=== PATIENT | female | born 1980 | race Caucasian/White ===

== ENCOUNTER 2017-09-29 06:53 | Emergency (ER) | payer OTHER, SELFPAY ==
[2017-09-29 06:53] VITALS: BP 143/56; PULSE 82; RESP 16; TEMP 36.8; O2SAT 98; BMI 43.4
--- NOTE | 2017-09-29 07:50 | CT_ITS ---
STUDY: CT ABDOMEN AND PELVIS WITH CONTRAST REASON FOR EXAM: Female, 36 years old. One-week history of abdominal pain. History of prior colon resection. History of uterine carcinoma. RADIATION DOSAGE (If Supplied By Facility): CTDIvol = ( 17.07 ) mGy, DLP = ( 1297.68 ) mGycm TECHNIQUE: Transaxial images were obtained from the dome of the diaphragm to the symphysis pubis with oral contrast. 100 ml of Isovue 300 contrast was administered. Sagittal and coronal images were reconstructed. Individualized dose optimization techniques were used for this CT. COMPARISON: Comparison is made with prior study dated August 25, 2016. FINDINGS: The visualized lung bases are unremarkable. The visualized portions of the heart are within normal limits. There is decreased attenuation of the liver consistent with steatosis. Hepatomegaly. Normal gallbladder and extrahepatic biliary system. Normal spleen. Normal pancreas. Normal bilateral adrenal glands. Normal right kidney. Normal left kidney. Normal visualized stomach. Normal small intestine. There is evidence of prior right hemicolectomy. There is non-visualization of the appendix. Normal abdominal aorta. Normal inferior vena cava. Normal retroperitoneum. Normal urinary bladder. There is absence of the uterus consistent with a prior hysterectomy. There is a small umbilical hernia containing fat. Normal osseous structures. CT/Abdomen/Pelvis WITH Contrast IMPRESSION: Diffuse fatty infiltration of the liver. Hepatomegaly. Status post right hemicolectomy. Electronically Signed: Alejandro Friend MD at 10:16 EDT Tel [phone], Service support ,
[2017-09-29 08:08] LABS: Mucous, Urine 0 SEEN /hpf (<or=2+); Red Blood Cells-Urine 0 SEEN /hpf (0-5)
[2017-09-29 08:13] LABS: Absolute Lymphocyte Count 3.04 X10^3/ul (0.83-4.51); Absolute Neutrophil Count 7.7 X10^3/uL (2.0-7.7); Basophil# 0.02 X10^3/uL; Basophil% 0.2 % (0-1); Eosinophil# 0.29 X10^3/uL; Eosinophils% 2.5 % (0-5); Hematocrit 42.3 % (37-47); Hemoglobin 13.2 g/dl (12.0-15.0); Lymphocyte # 3.04 X10^3/ul (4.0); Lymphocyte % 25.8 % (19-41); Mean Corp Hgb Conc 31.2 g/gl (32-36); Mean Corpuscular Hgb 26.2 pg (27.0-32.0); Mean Corpuscular Volume 83.9 fL (81-99); Monocyte# 0.69 X10^3/uL; Monocyte% 5.9 % (0-10); Neutrophil % 65.3 % (47-70); Platelet Count 316 K/mm3 (150-450); Red Blood Count 5.04 M/mm3 (4.2-5.4); White Blood Count 11.8 K/mm3 (4.4-11.0)
[2017-09-29 08:13] LABS: Color, Urine Yellow (Yellow); Glucose, Dipstick Normal (Normal); Ketone-Dipstick Negative (Negative); Leukocyte Esterase-Dipstick Negative /ul (Negative); Nitrite-Dipstick Negative (Negative); Occult Blood-Urine 25 /ul (Negative); Protein-Dipstick 15 mg/dl (Negative); Specific Gravity, Urine 1.025 (1.002-1.030); Urine Bilirubin Dipstick Negative (Negative); Urine Clarity Sl. Cloudy (Clear); Urine Urobilinogen Normal (Normal)
[2017-09-29 08:19] LABS: POSITIVE COUNT NO; POSITIVE DIFFERENTIAL NO; POSITIVE MORPHOLOGY NO
[2017-09-29 08:25] LABS: Bacteria 4+ /hpf (None Seen); Squamous Epithelial Cells - UA 5-10 SEEN /hpf (5-10); White Blood Cells 0-5 SEEN /hpf (0-5)
[2017-09-29 08:31] LABS: ALB/GLOB Ratio 0.7 RATIO (0.9-2.4); AST(SGOT) 20 U/L (15-37); Alanine Aminotransfer ALT/SGPT 29 U/L (13-56); Albumin, Serum 3.5 g/dL (3.2-5.0); Alkaline Phosphatase 94 U/L (45-117); Anion Gap 5 (5-15); BUN 14 mg/dL (7-18); BUN/Creat Ratio 14.8 RATIO (10-20); Calcium,Total 8.7 mg/dL (8.5-10.1); Chloride 108 mmol/L (98-107); Creatinine, Serum 0.95 mg/dL (0.55-1.02); EST Glomerular Filtration Rate 70 mL/min (>60); Est Glom Filt Rate - Afr Amer 85 mL/min (>60); Estimated Creatinine Clearance 61.18 ml/min; Globulin 4.9 g/dL (2.2-4.2); Glucose 144 mg/dL (74-106); Lipase 132 U/L (73-393); Protein, Total 8.4 g/dL (6.4-8.2); Sodium Level 141 mmol/L (136-145)
[2017-09-29 08:54] VITALS: BP 129/84; PULSE 78; RESP 16; O2SAT 97
[2017-09-29] MEDS: Ondansetron 4 MG/2 ML Vial IV (09:47)
[2017-09-29 09:48] VITALS: BP 124/78; PULSE 73; RESP 16; O2SAT 96
[2017-09-29 11:37] VITALS: BP 133/75; PULSE 90; RESP 18; O2SAT 97
--- NOTE | 2017-09-29 11:41 | ED.VISSUMM ---
- ER Visit Summary Date of Service: 09/29/17 Chief Complaint: Abdominal pain History of Present Illness: The patient is a 36 F who presents with a one-week history of abdominal pain. She states that sometimes on the right side sometimes on the left side but she always has a slight amount of burning across the epigastrium. History of uterine cancer as well as having a colectomy for polyps. Her physicians are at the [facility]. She notes nausea but no vomiting. She notes alternating diarrhea with constipation. No fevers. No blood in stool. Physical Examination: Afebrile vital signs are stable Gen: Well-nourished well-developed Head: Normocephalic atraumatic Eyes: Perrl EOMI ENT: TMs clear no rhinorrhea moist mucous membranes Neck: Supple no lymphadenopathy no JVD nontender CVS: Regular rate rhythm no murmurs normal S1-S2 Respiratory: No distress clear to auscultation bilaterally chest nontender Abdomen: Soft nontender nondistended normal bowel sounds no masses Back: Nontender Extremity: Nontender no edema Skin: Normal color no rash Neuro: alert orientated ?3 CN II-XII intact normal strength sensation reflexes gait cerebellar Psych: Normal affect normal mood Test Results: CBC with white count 11.8. Urinalysis negative nitrates negative whites negative reds 4+ bacteria CT of pelvis did not demonstrate any acute findings. Emergency Department Course and Treatment: Received morphine and Zofran and later Toradol. She has been resting comfortably. I will be placing the patient on Pepcid. She is to follow-up with her doctors return if worsening or concerns. Impression: 1. Acute abdominal pain 2. Gastritis This note was generated with [employer] dictation software. It may contain incorrect words, spelling, and punctuation that were not noted in review of the chart prior to signing ED Disposition - Plan for ED Patient: Disposition: Home or Assisted Living Chief Complaint: Abd Pain Instructions: ED Abdominal Pain Unkn Cause, ED PUD Vs Gastritis Prescriptions: Famotidine [Pepcid] 20 mg PO BID #28 tab Referrals: Marta Hernandez MD [Primary Care Provider] - 1 Week
--- NOTE | 2017-09-29 11:52 | ED.DCSUM_ITS ---
- ER Visit Summary Date of Service: 09/29/17 Chief Complaint: Abdominal pain History of Present Illness: The patient is a 36 F who presents with a one-week history of abdominal pain. She states that sometimes on the right side sometimes on the left side but she always has a slight amount of burning across the epigastrium. History of uterine cancer as well as having a colectomy for polyps. Her physicians are at the [facility]. She notes nausea but no vomiting. She notes alternating diarrhea with constipation. No fevers. No blood in stool. Physical Examination: Afebrile vital signs are stable Gen: Well-nourished well-developed Head: Normocephalic atraumatic Eyes: Perrl EOMI ENT: TMs clear no rhinorrhea moist mucous membranes Neck: Supple no lymphadenopathy no JVD nontender CVS: Regular rate rhythm no murmurs normal S1-S2 Respiratory: No distress clear to auscultation bilaterally chest nontender Abdomen: Soft nontender nondistended normal bowel sounds no masses Back: Nontender Extremity: Nontender no edema Skin: Normal color no rash Neuro: alert orientated ?3 CN II-XII intact normal strength sensation reflexes gait cerebellar Psych: Normal affect normal mood Test Results: CBC with white count 11.8. Urinalysis negative nitrates negative whites negative reds 4+ bacteria CT of pelvis did not demonstrate any acute findings. Emergency Department Course and Treatment: Received morphine and Zofran and later Toradol. She has been resting comfortably. I will be placing the patient on Pepcid. She is to follow-up with her doctors return if worsening or concerns. Impression: 1. Acute abdominal pain 2. Gastritis This note was generated with [employer] dictation software. It may contain incorrect words, spelling, and punctuation that were not noted in review of the chart prior to signing ED Disposition - Plan for ED Patient: Disposition: Home or Assisted Living Chief Complaint: Abd Pain Instructions: ED Abdominal Pain Unkn Cause, ED PUD Vs Gastritis Prescriptions: Famotidine [Pepcid] 20 mg PO BID #28 tab Referrals: Marta Hernandez MD [Primary Care Provider] - 1 Week
[2017-09-29] MEDS: Ketorolac 30 MG/ML Syringe IV (12:04)
[2017-09-29 12:38] VITALS: BP 122/63; PULSE 69; RESP 18; O2SAT 95
== END 2017-09-29 12:46 | disposition home or self-care (01) ==
PROVIDERS: Emergency Provider Emergency Medicine; Family Provider Internal Medicine; PCP Internal Medicine
DX: K29.70 Gastritis, unspecified, without bleeding (principal); J45.909 Unspecified asthma, uncomplicated; Z85.42 Personal history of malignant neoplasm of other parts of uterus
CPT/HCPCS: 74177; 80053; 81001; 83690; 85025; 96374; 96375; 99283; Q9967; A4216; J2405

== ENCOUNTER 2017-10-06 06:56 | Emergency (ER) | payer OTHER, SELFPAY ==
[2017-10-06 06:57] VITALS: BP 104/77; PULSE 74; RESP 22; TEMP 36.7; O2SAT 94; BMI 47.7
--- NOTE | 2017-10-06 07:12 | ED.DCSUM_ITS ---
- ER Visit Summary Date of Service: 10/06/17 Chief Complaint: Abdominal pain, vomiting blood History of Present Illness: The patient is a 36 F has been seen here last week, she has been seen at urgent care. She has a history of familial polyposis and she had a colon resection about 15 years ago, she presents with nausea and vomiting, she did notice some blood in her vomitus. She has the symptoms for the past 2-3 weeks. No fever or chills. She endorses abdominal cramping. She had a workup including a CT scan which were unremarkable. There are no new symptoms today other than that she noticed bleeding. She has no urinary symptoms. No back pain or flank pain. Pain is mild to moderate, but it is difficult to eat. She is keeping hydrated. Physical Examination: Not appear in acute distress. Moist mucous membranes, no obvious facial deformity No C-spine tenderness supple neck. Regular rate and rhythm without any obvious murmurs Clear lungs bilaterally speaking in full sentences without any obvious respiratory distress Abdomen soft with some epigastric tenderness no guarding or rebound. Negative Howard's. Rectal exam shows no bleeding, no hemorrhoids. The stool is light brown without any blood. Moves all extremities without any difficulty or pain. Skin does not show any obvious rashes or lesions, no trauma. Alert oriented ?3 with no gross focal deficit Emergency Department Course and Treatment: She is found to have an unremarkable workup. Her guaiac is negative, her stool is light brown and nonbloody. She probably has an ulcer, we will give her antiemetics and proton pump inhibitors. She is to follow-up for her colonoscopy which is in 2 weeks. He has any worsening symptoms she needs to return. Disposition: Discharged in stable condition Impression: Epigastric pain This note was generated with [employer] dictation software. It may contain incorrect words, spelling, and punctuation that were not noted in review of the chart prior to signing ED Disposition - Plan for ED Patient: Chief Complaint: GI Bleed Referrals: Marta Hernandez MD [Primary Care Provider] -
[2017-10-06] MEDS: Ondansetron 4 MG/2 ML Vial IV (07:23)
[2017-10-06] MEDS: 0.9% Normal Saline 1,000 ML 1000 ML IV (07:23)
[2017-10-06] MEDS: Sucralfate 1 GM Tablet PO (07:23)
[2017-10-06 07:41] LABS: Absolute Lymphocyte Count 3.06 X10^3/ul (0.83-4.51); Absolute Neutrophil Count 6.9 X10^3/uL (2.0-7.7); Basophil# 0.02 X10^3/uL; Basophil% 0.2 % (0-1); Eosinophil# 0.22 X10^3/uL; Hematocrit 42.1 % (37-47); Hemoglobin 13.4 g/dl (12.0-15.0); Lymphocyte # 3.06 X10^3/ul (4.0); Lymphocyte % 28.1 % (19-41); Mean Corp Hgb Conc 31.8 g/gl (32-36); Mean Corpuscular Hgb 26.2 pg (27.0-32.0); Mean Corpuscular Volume 82.4 fL (81-99); Mean Platelet Vol. 10.1 fl (6.2-12.0); Monocyte# 0.65 X10^3/uL; Neutrophil # 6.88 X10^3/uL (2.7-7.7); Neutrophil % 63.1 % (47-70); Platelet Count 307 K/mm3 (150-450); RBC Distribution Width CV 14.7 % (11.6-14.6); Red Blood Count 5.11 M/mm3 (4.2-5.4); White Blood Count 10.9 K/mm3 (4.4-11.0)
[2017-10-06 07:42] LABS: POSITIVE COUNT NO; POSITIVE DIFFERENTIAL NO; POSITIVE MORPHOLOGY NO
[2017-10-06 07:58] LABS: ALB/GLOB Ratio 0.7 RATIO (0.9-2.4); AST(SGOT) 19 U/L (15-37); Alanine Aminotransfer ALT/SGPT 35 U/L (13-56); Albumin, Serum 3.4 g/dL (3.2-5.0); Alkaline Phosphatase 85 U/L (45-117); Anion Gap 9 (5-15); BUN 16 mg/dL (7-18); Calcium,Total 8.9 mg/dL (8.5-10.1); Chloride 106 mmol/L (98-107); Creatinine, Serum 0.89 mg/dL (0.55-1.02); EST Glomerular Filtration Rate 76 mL/min (>60); Est Glom Filt Rate - Afr Amer 92 mL/min (>60); Estimated Creatinine Clearance 68.45 ml/min; Globulin 4.7 g/dL (2.2-4.2); Glucose 136 mg/dL (74-106); Lipase 114 U/L (73-393); Potassium 3.9 mmol/L (3.5-5.1); Protein, Total 8.1 g/dL (6.4-8.2); Sodium Level 141 mmol/L (136-145)
--- NOTE | 2017-10-06 08:04 | ED.DEP ---
ED Disposition - Plan for ED Patient: Disposition: Home or Assisted Living Chief Complaint: GI Bleed Instructions: ED Epigastric Pain UKO, ED PUD Prescriptions: Ondansetron [Zofran Odt] 4 mg PO Q8H PRN PRN #10 tab PRN Reason: Nausea Omeprazole 40 mg PO DAILY #30 capsule.dr Referrals: Marta Hernandez MD [Primary Care Provider] - 2 Days
[2017-10-06 08:19] VITALS: RESP 16
== END 2017-10-06 08:20 | disposition home or self-care (01) ==
PROVIDERS: Emergency Provider Emergency Medicine; Family Provider Internal Medicine; PCP Internal Medicine
DX: R10.13 Epigastric pain (principal); Z85.42 Personal history of malignant neoplasm of other parts of uterus; Z85.038 Personal history of other malignant neoplasm of large intestine; Z90.49 Acquired absence of other specified parts of digestive tract
CPT/HCPCS: 80053; 82274; 83690; 85025; 96361; 96374; 99284; J7030; J2405

== ENCOUNTER 2019-06-20 05:35 | Emergency (ER) | payer BC, SELFPAY ==
[2019-06-20 05:37] VITALS: BP 148/87; PULSE 85; RESP 18; TEMP 36.4; O2SAT 97; BMI 49.1
--- NOTE | 2019-06-20 05:51 | CT_ITS ---
STUDY: CT BRAIN WITH AND WITHOUT CONTRAST REASON FOR EXAM: Female, 38 years old. POSTERIOR HEADACHE X 10 DAYS,RT EYE BLURRY THIS AM -- HX:ASTHMA,UTERINE CANCER RADIATION DOSAGE (If Supplied By Facility): CTDIvol = ( 27.29 ) mGy, DLP = ( 1286.67 ) mGycm TECHNIQUE: Transaxial CT imaging of the brain was performed pre and post contrast administration. The examination was performed with intravenous administration of IV 100mL Isovue-370. Individualized dose optimization techniques were used for this CT. COMPARISON: None. FINDINGS: Normal soft tissue structures. Normal calvarium. Normal size ventricles and extra-axial spaces for the patient''s age. Normal white matter tracts of the cerebral hemispheres. Normal basal ganglia and thalami. Normal brainstem. Normal cerebellum. There is no intracranial hemorrhage. There are no findings of an acute ischemic infarction. Normal visualized paranasal sinuses. CT/CTA Head W/WO Contrast IMPRESSION: Normal unenhanced and enhanced CT scan of the brain. Electronically Signed: Frantz So, at 6:37 EDT Tel , Service support ,
--- NOTE | 2019-06-20 05:53 | ED.DCSUM_ITS ---
- ER Visit Summary Date of Service: 06/20/19 Chief Complaint: Posterior headache History of Present Illness: The patient is a 38 F history of prior headaches, asthma and prior hysterectomy and partial colectomy due to uterine cancer. Patient states that she had onset of a posterior headache about 8 days ago. The headaches been continuous. She states at times she has blurry vision. Denies any falls or trauma. She is on no blood thinners. She has had headaches in the past but she said they have not been this bad or lasted this long. She denies any weakness or numbness to her upper or lower extremities. She denies any ataxia. She denies any fever or sinus congestion. No one else at home is c urrently having headaches. She does have an uncle that had a brain aneurysm reportedly but no one else in the family. Physical Examination: Middle-aged female no acute distress. Vital signs are stable and afebrile. H EENT exam normal. Pupils round reactive light. Extra motions are intact. Pupils are about 2 mm bilaterally. No facial droop. Normal speech. No signs of trauma to face or scalp. Neck full range of motion no meningismus. Able to flex and touch chin to chest. She does have reproducible musculoskeletal tenderness to the posterior neck. There is no ly mphadenopathy. Lungs clear to auscultation bilaterally. Heart regular rhythm no murmur. Abdomen is soft and nontender. Normal bowel sounds. No peritoneal signs. Patient is moving all 4 extremities. They are neurovascular intact. 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 Dorsi plantarflexion intact. She can raise either arm or either leg without any drift. Back nontender. Neurologic exam normal. NIH of 0. Fingertip to nose within normal limits bilaterally. Test Results: CTA of the brain was read by the radiologist as normal and reviewed by me. Emergency Department Course and Treatment: Patient has a normal exam and a normal neurologic exam. Due to her complaint of having a headache for the last 8 days and intermittent blurry vision I am going to obtain a CAT scan of her brain with contrast to evaluate for possible intracranial abnormality such as bleed, stroke or mass. Clinically however at this time my suspicion is low. Patient will be treated with IV fluids, Benadryl, Toradol and Phenergan for her headache. Treatment Plan: Plenty of fluids and rest. Tylenol and Motrin as needed. Follow-up if not improving. Disposition: discharge Impression: Acute cephalgia This note was generated with [employer] dictation software. It may contain incorrect words, spelling, and punctuation that were not noted in review of the chart prior to signing ED Disposition - Plan for ED Patient: Referrals: Marta Hernandez MD [Primary Care Provider] -
[2019-06-20] MEDS: Ketorolac 30 MG/ML Syringe IV (06:04)
[2019-06-20] MEDS: 0.9% Normal Saline 1,000 ML 1000 ML IV (06:05)
[2019-06-20] MEDS: DiphenhydrAMINE 50 MG/ML Syringe 25 MG IV (06:06)
[2019-06-20] MEDS: proMETHazine 25 MG/ML Syringe 12.5 MG IV (06:06)
--- NOTE | 2019-06-20 06:52 | ED.DEP ---
ED Disposition - Plan for ED Patient: Disposition: Home or Assisted Living Instructions: HEADACHE, Unspecified Referrals: Marta Hernandez MD [Primary Care Provider] - 3-5 Days if not improving Additional Instructions: Fluids and rest. Tylenol and Motrin for pain. Follow-up with your doctor if not improving.
--- NOTE | 2019-06-20 07:05 | ED.RN ---
approx 500 ml infused.
== END 2019-06-20 07:05 | disposition home or self-care (01) ==
PROVIDERS: Emergency Provider Emergency Medicine; PCP Internal Medicine
DX: R51 Headache (principal); J45.909 Unspecified asthma, uncomplicated
CPT/HCPCS: 70496; 96361; 96374; 96375; 99284; J7030; Q9967; A4216

== ENCOUNTER 2020-01-02 10:59 | Emergency (ER) | payer BC, SELFPAY ==
[2020-01-02 11:00] VITALS: BP 148/128; PULSE 94; RESP 20; TEMP 36.3; O2SAT 98; BMI 49.1
[2020-01-02] MEDS: MethylPREDNISolone 125 MG/2 ML Vial IV (11:13)
[2020-01-02] MEDS: 0.9% Normal Saline 1,000 ML 999 ML IV (11:17)
[2020-01-02] MEDS: Famotidine 200 MG/20 ML MDV 20 MG in 0.9% Normal Saline (Pres. free 8 ML 300 MG IV (11:20)
[2020-01-02 11:22] VITALS: BP 135/70; PULSE 83; RESP 24; O2SAT 96
--- NOTE | 2020-01-02 11:37 | ED.VISSUMM ---
- ER Visit Summary Date of Service: 01/02/20 Chief Complaint: Allergic reaction to bee sting History of Present Illness: The patient is a [address] Spear. She reports that approximately 15 minutes ago she was cleaning a client's house and there was a bee in her right shoe. She was stung to the bottom of her right foot. She reports that her foot and ankle are swollen. Throat began to feel itchy and she was wheezing. She took 100 mg of Benadryl and used her albuterol MDI with relief. 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 Physical Examination: Vitals: Stable. Afebrile. General: Well-nourished and well-developed. Head: Normocephalic atraumatic. HEENT: No angioedema of her lips, tongue, or pharynx. Neck: Supple, no lymphadenopathy. No JVD. Nontender. Cardiovascular: Regular rate and rhythm. No murmurs. Respiratory: No respiratory distress. Clear to auscultation bilaterally. No wheezing or stridor. Abdominal: Soft, nontender, nondistended, normal bowel sounds. No guarding, rebound, or peritoneal signs. Back: Nontender. Extremities: Nontender, mild swelling of her right foot. No obvious location of the sting. There is not a stinger in place. There is no erythema. Skin: Normal color, no rash. Neurologic: Alert and oriented ?3. Cranial nerves II through XII are intact. Normal strength and sensation. Psych: Normal affect. Emergency Department Course and Treatment: Patient had taken 100 mg of Benadryl prior to arrival. She had an IV placed. She was given Pepcid and Solu-Medrol IV. She is been observed over the course of 2 hours and feels much improved. Treatment Plan: Patient will be discharged with Zyrtec, prednisone, and Pepcid. Instructed to follow-up with her primary care physician 1 to 2 days if not improving. She is also provided a prescription for an EpiPen. Return to the emergency department for any worsening symptoms. Disposition: To home in improved and stable condition. Impression: 1. Acute allergic reaction to bee sting right foot. This note was generated with [employer] software. It may contain incorrect words, spelling, and punctuation that were not noted in review of the chart prior to signing ED Disposition - Plan for ED Patient: Instructions: ED BEE STING General Allergic Rxn Prescriptions: Prednisone [Deltasone] 40 mg PO DAILY #10 tablet Epi Pen (for allergic rxn) 0.3 mg IM X1 #2 syringe Famotidine [Pepcid] 20 mg PO BID #28 tablet Cetirizine HCl [Zyrtec] 10 mg PO DAILY #14 capsule Referrals: Marta Hernandez MD [Primary Care Provider] - 1-2 Days if not improving
[2020-01-02 12:00] VITALS: BP 134/93; PULSE 81; RESP 18; O2SAT 99
[2020-01-02 13:15] VITALS: BP 129/93; PULSE 79; RESP 16; O2SAT 98
== END 2020-01-02 13:15 | disposition home or self-care (01) ==
LOC: ED 12:07
PROVIDERS: Emergency Provider Emergency Medicine; PCP Internal Medicine
DX: T63.441A Toxic effect of venom of bees, accidental (unintentional), initial encounter (principal); J45.909 Unspecified asthma, uncomplicated
CPT/HCPCS: 96365; 96366; 96375; 99283; A4216; J3490

== ENCOUNTER 2020-05-10 18:23 | Inpatient (IN) | payer BC, SELFPAY ==
[2020-05-10] VITALS (11 sets, daily range): BP systolic 117–181; BP diastolic 59–93; PULSE 120–131; RESP 15–30; TEMP 37.4–39.7; O2SAT 95–99; BMI 49.9
--- NOTE | 2020-05-10 18:27 | ED.RN ---
RN CALLED FOR EKG, PULLED OLD EKGS FOR
--- NOTE | 2020-05-10 18:42 | EKG12_ITS ---
Test Reason : CP Blood Pressure : / mmHG Vent. Rate : 123 BPM Atrial Rate : 123 BPM P-R Int : 124 ms QRS Dur : 066 ms QT Int : 282 ms P-R-T Axes : 039 056 035 degrees QTc Int : 403 ms Sinus tachycardia Otherwise normal ECG Confirmed by JAVED FIGUEREDO, LESLEE ([id number]), slot editor CASTILLO GALLAGHER ([id number]) on 05/12/2020 12:22:55 P M Referred By: GRACIE Confirmed By:JUDITH BURT MD
[2020-05-10] MEDS: 0.9% Normal Saline 1,000 ML 999 ML IV ×2 (18:55→22:19)
[2020-05-10] MEDS: Acetaminophen 500 MG Tablet 1000 MG PO (18:55)
--- NOTE | 2020-05-10 19:00 | RAD_ITS ---
STUDY: X-RAY CHEST REASON FOR EXAM: Female, 39 years old. Chest pain for 20 minutes TECHNIQUE: PA and lateral views of the chest. COMPARISON: 09/09/11 FINDINGS: Cardiac silhouette unremarkable. Pulmonary vascularity/interstitial markings are prominent. Aorta unremarkable. No focal airspace opacities. No pleural effusions. Upper abdomen unremarkable. Osseous structures intact. No pneumothorax. RAD/Chest 1 View (Portable) IMPRESSION: Nonspecific increased prominence of the pulmonary vascular and interstitial markings which may be artifactual or indicate edema versus infection in the appropriate clinical setting. Electronically Signed: Juice Israel MD at 19:30 EST Tel , Service support ,
--- NOTE | 2020-05-10 19:02 | ED.VIS.GEN ---
History of Present Illness Chief Complaint: Chest Pain Informant: Patient Narrative: 39 year-old female with past medical history of asthma presents with concern for chest pain. States began 20 minutes ago. States it is aching and in the center of her chest. States that she had a slight headache yesterday but has had no other symptoms. Denies any shortness of breath, nausea, vomiting, diaphoresis, cough, fever, chills. Past Medical History - Allergies and Home Meds Allergies/Adverse Reactions: Allergies bee venom protein (honey bee) Allergy (Verified 05/10/20 18:24) Anaphylaxis codeine Allergy (Verified 05/10/20 18:24) Rash AND N/V latex Allergy (Verified 05/10/20 18:24) Rash metoclopramide HCl [From Reglan] Allergy (Verified 05/10/20 18:24) Rash Primary Care Physician: Marta Hernandez MD [Primary Care Provider] - Prior records reviewed: Yes Past Medical History: - - asthma Surgical History: noncontributory Lives: Alone Smoking Status: Never smoker Alcohol: None Drugs: None Review of Systems General: Denies: Chills, Fever, Sweats Eyes: Denies: Visual changes - bilaterally, Diplopia ENT: Denies: Rhinorrhea, Sore throat Cardiovascular: Reports: Chest pain. Denies: Palpitations Respiratory: Denies: Dyspnea, Cough, Dyspnea on exertion Gastrointestinal: Denies: Abdominal pain, Nausea, Vomiting, Diarrhea, Melena, Hematochezia Genitourinary: Denies: Dysuria, Hematuria, Frequency Musculoskeletal: Denies: Back pain, Extremity Pain Skin: Denies: Rash, Wounds Neurological: Denies: Headache, Weakness, Numbness Physical Exam Vital Signs/Narrative: Vital Signs Temp Pulse Resp BP Pulse Ox 05/10/20 18:45 103.4 F H 127 H 23 H 181/93 H 99 05/10/20 18:28 123 H 22 H 181/93 H 99 05/10/20 18:27 102.7 F H 131 H 21 H 181/93 H 98 05/10/20 18:24 102.7 F H 123 H 22 H 181/93 H 97 Inital Vital Signs reviewed: Yes General: Well nourished, Well developed, No Acute Distress Head: Normocephalic, Atraumatic Eyes: Perrl, EOMI ENT: Moist mucous membranes, No rhinorrhea Neck: Supple, Nontender Cardiovascular: Regular rhythm, No murmurs, Tachycardia Respiratory: No distress, CTA bilaterally, Chest nontender Abdomen: Soft, Nontender, Nondistended, Normal bowel sounds Back: Nontender, Normal Inspection Extremities: Nontender, No edema Skin: Normal color, No rash Neurological: Alert, Oriented x3, Cranial nerves II-XII grossly intact, Normal Strength, Normal Sensation Psychological: Normal affect, Normal Mood Diagnostic/Tx/Re-eval Chest X-Ray - ED: 1 View, Read by ED Physician, Read by Radiologist, - - Increased interstitial prominence. Clinical Impression(s) from Imaging Studies Chest X-Ray 05/10/20 19:00 IMPRESSION: Nonspecific increased prominence of the pulmonary vascular and interstitial markings which may be artifactual or indicate edema versus infection in the appropriate clinical setting. Electronically Signed: Juice Israel MD at 19:30 EST Tel , Service support , Chest CTA 05/10/20 20:19 IMPRESSION: Possible mild edema or pneumonitis not typical for covid 19 at this time. Electronically Signed: Eliezer Mejia MD at 22:22 EST , Service support , Laboratory Data 05/10/20 05/10/20 05/10/20 17:40 19:51 19:51 WBC 17.4 H RBC 4.52 Hgb 11.9 L Hct 39.5 MCV 87.4 MCH 26.3 L MCHC 30.1 L RDW Std Deviation 46.4 H RDW Coeff of Javan 14.4 Plt Count 263 MPV 10.6 Immature Gran % (Auto) 0.600 Neut % (Auto) 85.8 H Lymph % (Auto) 8.6 L [place] % (Auto) 4.6 Eos % (Auto) 0.2 Baso % (Auto) 0.2 Absolute Neuts (auto) 14.9 H Absolute Lymphs (auto) 1.49 Nucleated RBC % 0 PT 14.6 INR 1.2 APTT 29.4 Sodium 136 Potassium 5.0 Chloride 105 Carbon Dioxide 23.0 Anion Gap 8 BUN 13 Creatinine 0.97 Estim Creat Clear Calc 58.18 Est GFR (MDRD) Af Amer 82 Est GFR (MDRD) Non-Af 68 BUN/Creatinine Ratio 13.4 Glucose 165 H Lactic Acid Calcium 9.0 Total Bilirubin 0.50 AST 41 H ALT 39 Alkaline Phosphatase 94 Troponin I < 0.015 Total Protein 7.5 Albumin 3.4 Globulin 4.1 Albumin/Globulin Ratio 0.8 L Urine Color Urine Clarity Urine pH Ur Specific [place] Urine Protein Urine Glucose (UA) Urine Ketones Urine Occult Blood Urine Nitrite Urine Bilirubin Urine Urobilinogen Ur Leukocyte Esterase Urine RBC Urine WBC Ur Squamous Epith Cells Urine Bacteria Urine Mucus 05/10/20 05/10/20 19:51 22:05 WBC RBC Hgb Hct MCV MCH MCHC RDW Std Deviation RDW Coeff of Javan Plt Count MPV Immature Gran % (Auto) Neut % (Auto) Lymph % (Auto) [place] % (Auto) Eos % (Auto) Baso % (Auto) Absolute Neuts (auto) Absolute Lymphs (auto) Nucleated RBC % PT INR APTT Sodium Potassium Chloride Carbon Dioxide Anion Gap BUN Creatinine Estim Creat Clear Calc Est GFR (MDRD) Af Amer Est GFR (MDRD) Non-Af BUN/Creatinine Ratio Glucose Lactic Acid 2.5 H* Calcium Total Bilirubin AST ALT Alkaline Phosphatase Troponin I Total Protein Albumin Globulin Albumin/Globulin Ratio Urine Color Yellow Urine Clarity Clear Urine pH 5.0 Ur Specific [place] 1.010 Urine Protein 15 H Urine Glucose (UA) Normal Urine Ketones Negative Urine Occult Blood 25 H Urine Nitrite Negative Urine Bilirubin Negative Urine Urobilinogen Normal Ur Leukocyte Esterase Negative Urine RBC 0-5 SEEN Urine WBC 0 SEEN Ur Squamous Epith Cells 0-5 SEEN Urine Bacteria 0 SEEN Urine Mucus 0 SEEN - Rhythm Strip Rhythm Strip: Sinus Tach Rate: 123 Ectopy: None - EKG Initial EKG Interpretation: Sinus Tachycardia - Sinus tachycardia 123 bpm. NC interval 124 ms. QTC of 403 ms. - Medical Decision Making Patient tachycardic and febrile upon arrival. Lungs clear. Chest x-ray shows increased interstitial prominence interpreted by myself. No sushil infiltrate or cardiomegaly. Patient given 1 L normal saline and Tylenol. Urine shows no evidence of infection. Other lab work shows a lactic acidosis with a leukocytosis. Patient will be given another 1 L of normal saline as well as Toradol. Patient did have a decrease in her fever but has increased back to 102 ?F. Patient will be given Motrin. CTA was done given her sudden onset of chest pain which shows no pulmonary embolism however is concerning for possible pneumonitis. Patient given Rocephin and azithromycin. Blood cultures pending. Given her persistent tachycardia and fever patient will be admitted for further treatment and evaluation. Spoke with hospitalist who is agreeable with this plan and patient was admitted in stable condition. Impression: 1. Sepsis 2. Pneumonitis ED Disposition - Plan for ED Patient: Disposition: [facility] Care [facility] Referrals: Marta Hernandez MD [Primary Care Provider] -
[2020-05-10 20:13] LABS: Absolute Lymphocyte Count 1.49 X10^3/uL (0.83-4.51); Absolute Neutrophil Count 14.9 X10^3/uL (2.0-7.7); Basophil# 0.03 X10^3/uL; Basophil% 0.2 % (0-1); Eosinophil# 0.03 X10^3/uL; Eosinophils% 0.2 % (0-5); Hematocrit 39.5 % (37-47); Hemoglobin 11.9 g/dL (12.0-15.0); Lymphocyte # 1.49 X10^3/ul (4.0); Lymphocyte % 8.6 % (19-41); Mean Corp Hgb Conc 30.1 g/dL (32-36); Mean Corpuscular Hgb 26.3 pg (27.0-32.0); Mean Corpuscular Volume 87.4 fL (81-99); Mean Platelet Vol. 10.6 fl (6.2-12.0); Monocyte% 4.6 % (0-10); NRBC Flagged by Analyzer 0 % (0-5); Neutrophil # 14.91 X10^3/uL (2.7-7.7); Neutrophil % 85.8 % (47-70); Platelet Count 263 K/mm3 (150-450); RBC Distribution Width CV 14.4 % (11.6-14.6); RBC Distribution Width SD 46.4 fl (35.1-43.9); Red Blood Count 4.52 M/mm3 (4.2-5.4); White Blood Count 17.4 K/mm3 (4.4-11.0)
[2020-05-10 20:16] LABS: ALB/GLOB Ratio 0.8 RATIO (0.9-2.4); AST(SGOT) 41 U/L (15-37); Alanine Aminotransfer ALT/SGPT 39 U/L (13-56); Albumin, Serum 3.4 g/dL (3.2-5.0); Alkaline Phosphatase 94 U/L (45-117); Anion Gap 8 (5-15); BUN 13 mg/dL (7-18); BUN/Creat Ratio 13.4 RATIO (10-20); Chloride 105 mmol/L (98-107); Creatinine, Serum 0.97 mg/dL (0.55-1.02); EST Glomerular Filtration Rate 68 mL/min (>60); Est Glom Filt Rate - Afr Amer 82 mL/min (>60); Estimated Creatinine Clearance 58.18 ml/min; Globulin 4.1 g/dL (2.2-4.2); Glucose 165 mg/dL (74-106); Protein, Total 7.5 g/dL (6.4-8.2); Sodium Level 136 mmol/L (136-145)
--- NOTE | 2020-05-10 20:19 | CT_ITS ---
STUDY: CTA CHEST REASON FOR EXAM: Female, 39 years old. 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 RADIATION DOSAGE (If Supplied By Facility): CTDIvol = ( 12.665 ) mGy, DLP = ( 519.17 ) mGycm TECHNIQUE: The examination was performed with the intravenous administration of IV 100mL [id number]. Post-processing of the angiographic images was performed, with multiplanar reformation and 3D reconstruction. Individualized dose optimization techniques were used for this CT. COMPARISON: Chest x-ray 05/10/2020. And CTA chest 01/17/2015 FINDINGS: Normal enhancement of the main pulmonary artery and right and left pulmonary arteries. There is limited enhancement of the bilateral peripheral pulmonary arteries. There is no demonstrated pulmonary embolism. Normal thoracic aorta and visualized great vessels. There is no demonstrated aortic dissection. Normal heart and pericardium. Normal mediastinum. Normal hilar regions. Normal visualized trachea and bronchi. Mild perihilar ill-defined groundglass opacity. Normal pulmonary parenchyma. Normal pleura. Normal chest wall structures. Normal osseous structures. Normal visualized upper abdomen. CT/CTA Chest W/WO Contrast IMPRESSION: Possible mild edema or pneumonitis not typical for covid 19 at this time. Electronically Signed: Eliezer Mejia MD at 22:22 EST , Service support ,
[2020-05-10 20:26] LABS: International Normalized Ratio 1.2; Partial Thromboplast Time 29.4 Seconds (24.1-36.2); Prothrombin Time (Protime)PT. 14.6 SECONDS (11.7-14.9)
[2020-05-10 20:51] LABS: Lactic Acid 2.5 mmol/L (0.4-1.9)
[2020-05-10] MEDS: Ketorolac 15 MG/ML Vial IV (20:57)
[2020-05-10] MEDS: Ondansetron 4 MG/2 ML Vial IV (21:04)
[2020-05-10 22:12] LABS: Bacteria 0 SEEN /hpf (None Seen); Mucous, Urine 0 SEEN /hpf (<or=2+); White Blood Cells 0 SEEN /hpf (0-5)
[2020-05-10] MEDS: Ibuprofen 600 MG Tablet PO (22:18)
[2020-05-10 22:19] LABS: Color, Urine Yellow (Yellow); Glucose, Dipstick Normal (Normal); Ketone-Dipstick Negative (Negative); Leukocyte Esterase-Dipstick Negative /ul (Negative); Nitrite-Dipstick Negative (Negative); Occult Blood-Urine 25 /ul (Negative); Protein-Dipstick 15 mg/dl (Negative); Urine Bilirubin Dipstick Negative (Negative); Urine Clarity Clear (Clear); Urine Urobilinogen Normal (Normal)
[2020-05-10 22:25] LABS: Red Blood Cells-Urine 0-5 SEEN /hpf (0-5); Squamous Epithelial Cells - UA 0-5 SEEN /hpf (5-10)
--- NOTE | 2020-05-10 22:59 | HP.PCM_ITS ---
History of Present Illness Date of Admission: 05/10/20 Chief Complaint: chest pain The patient is a 39 year old F with a PMH of asthma who was admitted via the ED on 05/10/2020 with a complaint of chest pain which started ~ 20 mins prior to admission. She had associated slight headache, and also had a fever. Review of systems was otherwise negative. Vitals showed tachycardia and tachypnea, and she was febrile, with temp of 102.3F. BP was 117/59/ Chemistry was unremarkable, with lactic acid of 2.5. CBC showed wbc of 17.4, and Hb of 11.9, with platelets of 263. CXR showed non specific increased prominence of the pulmonary vascular and interstitial markings which may be artifactual indicate edema versus in fection in the appropriate clinical setting. CTA of the chest done showed no evidence of PE and showed possible mild edema or pneumonitis not typical for Covid at this time. She has been admitted to be managed for SIRS criteria due to pneumonitis. Covid PCR test requested and is pending. [] Past Medical History Allergies bee venom protein (honey bee) Allergy (Verified 05/10/20 18:24) Anaphylaxis codeine Allergy (Verified 05/10/20 18:24) Rash AND N/V latex Allergy (Verified 05/10/20 18:24) Rash metoclopramide HCl [From Reglan] Allergy (Verified 05/10/20 18:24) Rash Home Medications: Ambulatory Orders Medication Instructions Recorded Albuterol Inhaler [Ventolin Hfa 1 - 2 puff INHALATION Q6H PRN PRN 01/17/15 (SP)] Albuterol Aerosols [Ventolin 2.5 mg INHALATION Q4H PRN PRN 01/02/20 Aerosols] Cetirizine HCl [Zyrtec] 10 mg PO DAILY #14 cap 01/02/20 Epi Pen [Epi-Pen] 0.3 mg IM X1 #2 syringe 01/02/20 Surgical History: noncontributory Lives: Alone Smoking Status: Never smoker Tobacco Use: Non-smoker Alcohol: None Drugs: None Review of Systems Constitutional: Denies: Chills, Fever, Weight Change HEENT: Denies: Head Aches, Sinus Congestion, Sinus Drainage Cardiovascular: Reports: Chest Pain. Denies: Palpitations Respiratory: Reports: Shortness of Breath, Shortness of breath at rest, Shortness of breath upon exertion. Denies: Cough, Sputum production Gastrointestinal: Denies: Abdominal Pain, Nausea, Vomiting Genitourinary: Denies: Dysuria Musculoskeletal: Denies: Joint Pain, Joint Tenderness Skin: Denies: Rash, Wounds Neurological: Denies: Numbness, Tingling, Focal weakness Psychiatric: Denies: Anxiety, Depression, Homicidal Ideations, Suicidal Ideati ons Hematologic/ Lymphatic: Denies: Easy Bruising, Easy Bleeding VTE Information - Inpt Only VTE Present on Admission: No VTE Pharm Prophylaxis ordered?: Yes - Physical Exam Vitals/I&O's: Vital Signs Temp Pulse Resp BP Pulse Ox 102.3 F H 122 H 20 H 117/59 L 95 05/10/20 22:00 05/10/20 22:00 05/10/20 22:00 05/10/20 22:00 05/10/20 22:00 Oxygen Delivery Method Room Air Weight: 264 lb 8.875 oz Body Mass Index (BMI) 49.9 Intake and Output for Last 24 Hours 05/08/20 05/09/20 05/10/20 23:59 23:59 23:59 Intake Total 1000 / 1000 Balance 1000 / 1000 General: Alert, Oriented x3, Cooperative, - - super morbid obesity HEENT: Atraumatic, PERRLA, EOMI, Normocephalic Oral: Dry Mucosa Neck: Supple, No JVD, Negative Carotid Bruits Lungs: Clear to auscultation, Normal air movement, No rhonchi, No wheeze, No rales, Tachypneic Cardiovascular: Normal S1, Normal S2, No murmurs, Tachycardic Abdomen: Bowel Sounds Present, Soft, Non Tender, Non-Distended, No Hepato- splenomegaly, Obese Extremities: No clubbing, No cyanosis, No edema, Capillary Refill Less than 3 S econds Skin: No rashes, No breakdown Musculoskeletal: No Tenderness to Palpation of Joints or Extremities Lymphatic: No Cervical, Supraclavicular, or Inguinal Adenopathy Neurological: Cranial nerves II-XII grossly intact, Neuro grossly intact, Motor Exam 5/5 strength throughout Psych/Mental Status: Normal Affect, Appropriate, Alert and oriented to time, place, person, mood and affect Microbiology Past 72 Hours 05/10/20 19:48 Mucosa - Nasopharyngeal SARS-CoV-2 Antigen (Rapid) - Final Laboratory Results 05/10/20 17:40: Sodium 136, Potassium 5.0, Chloride 105, Carbon Dioxide 23.0, Anion Gap 8, BUN 13, Creatinine 0.97, Estim Creat Clear Calc 58.18, Est GFR (MDRD) Af Amer 82, Est GFR (MDRD) Non-Af 68, BUN/Creatinine Ratio 13.4, Glucose 165 H, Calcium 9.0, Total Bilirubin 0.50, AST 41 H, ALT 39, Alkaline Phosphatase 94, Troponin I < 0.015, Total Protein 7.5, Albumin 3.4, Globulin 4.1, Albumin/Globulin Ratio 0.8 L 05/10/20 19:51: WBC 17.4 H, RBC 4.52, Hgb 11.9 L, Hct 39.5, MCV 87.4, MCH 26.3 L , MCHC 30.1 L, RDW Std Deviation 46.4 H, RDW Coeff of Javan 14.4, Plt Count 263, MPV 10.6, Immature Gran % (Auto) 0.600, Neut % (Auto) 85.8 H, Lymph % (Auto) 8.6 L, [place] % (Auto) 4.6, Eos % (Auto) 0.2, Baso % (Auto) 0.2, Absolute Neuts (auto) 14.9 H, Absolute Lymphs (auto) 1.49, Nucleated RBC % 0 05/10/20 19:51: PT 14.6, INR 1.2, APTT 29.4 05/10/20 19:51: Lactic Acid 2.5 H* 05/10/20 22:05: Urine Color Yellow, Urine Clarity Clear, Urine pH 5.0, Ur Specific [place] 1.010, Urine Protein 15 H, Urine Glucose (UA) Normal, Urine Ketones Negative, Urine Occult Blood 25 H, Urine Nitrite Negative, Urine Bilirubin Negative, Urine Urobilinogen Normal, Ur Leukocyte Esterase Negative, Urine RBC 0-5 SEEN, Urine WBC 0 SEEN, Ur Squamous Epith Cells 0-5 SEEN, Urine Bacteria 0 SEEN, Urine Mucus 0 SEEN Diagnostic Data Chest X-Ray 05/10/20 19:00 IMPRESSION: Nonspecific increased prominence of the pulmonary vascular and interstitial markings which may be artifactual or indicate edema versus infection in the appropriate clinical setting. Electronically Signed: Juice Israel MD at 19:30 EST Tel , Service support , Chest CTA 05/10/20 20:19 IMPRESSION: Possible mild edema or pneumonitis not typical for covid 19 at this time. Electronically Signed: Eliezer Mejia MD at 22:22 EST , Service support , Current Medications Sodium Chloride () 1,000 mls @ 999 mls/hr IV .Q1H1M ONE Stop: 05/10/20 23:12 Last Admin: 05/10/20 22:19 Dose: 999 mls/hr Documented by: Ceftriaxone Sodium (Rocephin) 1 gm in 50 mls @ 100 mls/hr IV X1 ONE Stop: 05/10/20 23:16 Azithromycin 500 mg/ Dextrose 255 mls @ 250 mls/hr IV X1 ONE Stop: 05/10/20 23:48 Assessment/Plan 39 y/o admitted with a complaint of shortness of breath and fever #Severe sepsis due to pneumonia * admit to PCU * SIRS criteria was 3/4- fever, leucocytosis, tachypnea, tachycardia * lactic acid was also elevated * wbc was up to 17.4 * admit to PCU with telemetry * COVID PCR and antigen tests were both negative * started on IV ceftriaxone and azithromycin in the ED, will continue * get blood cultures, urine for strep and legionella * hydrate with IVF * #Community acquired pneumonia: as above #Lactic acidosis: hydrate with IVF and trend # History of asthma * not in exacerbation * breathing treatment with bronchodilators * * DVT prophylaxis: lovenox Code status: full code * Patient counseled extensively about different types of CODE STATUS including full code, DNR CCA and DNR CCA. Patient elects to be full code. * Total [id number] time 17 minutes. Inpatient E&M: 34330 Init Hosp L3 Procedures: 28370 Advncd Care Plan 30 Min
[2020-05-10] MEDS: Ceftriaxone 1 GM/50 ML BAG IV (23:13)
[2020-05-11] VITALS (19 sets, daily range): BP systolic 99–150; BP diastolic 55–91; PULSE 80–119; RESP 18–28; TEMP 36.8–39.6; O2SAT 93–99; BMI 51.0
[2020-05-11 00:07] LABS: Reflex Lactate? Y
[2020-05-11] MEDS: Acetaminophen 500 MG Tablet 1000 MG PO (00:58)
[2020-05-11 01:42] LABS: Lactic Acid 3.3 mmol/L (0.4-1.9)
--- NOTE | 2020-05-11 01:48 | ED.RN ---
Pt complains of increased pain to right LE. Redness and warmth noted to RLE. Area traced fo monitoring.
[2020-05-11] MEDS: 0.9% Normal Saline 1,000 ML 999 ML IV ×5 (01:51→06:58)
[2020-05-11] MEDS: 0.9% Saline Lock 10 ML Syringe IV ×3 (03:55→11:57)
[2020-05-11] MEDS: Ondansetron 4 MG/2 ML Vial IV ×3 (04:18→18:25)
--- NOTE | 2020-05-11 04:25 | PCS.PANDOC ---
PANDEMIC DOCUMENTATION INITIATED: Date: 05/11/2020 Time: 3751
[2020-05-11 06:10] LABS: Absolute Lymphocyte Count 0.96 X10^3/uL (0.83-4.51); Absolute Neutrophil Count 23.5 X10^3/uL (2.0-7.7); Basophil# 0.07 X10^3/uL; Basophil% 0.3 % (0-1); Eosinophils% 0.4 % (0-5); Hematocrit 36.5 % (37-47); Hemoglobin 11.2 g/dL (12.0-15.0); Lymphocyte # 0.96 X10^3/ul (4.0); Lymphocyte % 3.8 % (19-41); Mean Corp Hgb Conc 30.7 g/dL (32-36); Mean Corpuscular Hgb 27.1 pg (27.0-32.0); Mean Corpuscular Volume 88.2 fL (81-99); Mean Platelet Vol. 10.6 fl (6.2-12.0); Monocyte# 0.55 X10^3/uL; Monocyte% 2.2 % (0-10); NRBC Flagged by Analyzer 0 % (0-5); Neutrophil # 23.46 X10^3/uL (2.7-7.7); Neutrophil % 91.6 % (47-70); POSITIVE DIFFERENTIAL YES; Platelet Count 219 K/mm3 (150-450); RBC Distribution Width CV 14.7 % (11.6-14.6); RBC Distribution Width SD 47.2 fl (35.1-43.9); Red Blood Count 4.14 M/mm3 (4.2-5.4); White Blood Count 25.6 K/mm3 (4.4-11.0)
[2020-05-11 06:17] LABS: Differential Indicated SCAN CRITERIA MET
[2020-05-11 06:37] LABS: Lactic Acid 2.3 mmol/L (0.4-1.9)
[2020-05-11 06:38] LABS: Anion Gap 8 (5-15); BUN 10 mg/dL (7-18); BUN/Creat Ratio 12.9 RATIO (10-20); Calcium,Total 7.6 mg/dL (8.5-10.1); Chloride 109 mmol/L (98-107); Creatinine, Serum 0.78 mg/dL (0.55-1.02); EST Glomerular Filtration Rate 87 mL/min (>60); Est Glom Filt Rate - Afr Amer 105 mL/min (>60); Estimated Creatinine Clearance 72.35 ml/min; Glucose 183 mg/dL (74-106); Potassium 3.8 mmol/L (3.5-5.1); Sodium Level 140 mmol/L (136-145)
[2020-05-11 06:46] LABS: Differential Comment SCANNED
[2020-05-11] MEDS: Acetaminophen 325 MG Tablet 650 MG PO ×3 (07:50→21:39)
[2020-05-11] MEDS: Loratadine 10 MG Tablet PO (07:51)
[2020-05-11] MEDS: Enoxaparin 40 MG/0.4 ML Syringe SC ×2 (07:51→21:32)
[2020-05-11] MEDS: Albuterol 2.5 MG/3 ML VIAL.NEB. INHALATION ×3 (08:25→20:37)
[2020-05-11 10:09] LABS: Reflex Lactate? Y
--- NOTE | 2020-05-11 11:09 | PCM.PROGNOTE ---
<ValeriyJo PRODUCT DEMONSTRATOR - Last Filed: 05/11/20 11:38> Subjective: Patient seen and examined. Denies shortness of breath. Denies chest pain. Reports palpitations. Fever improving. Denies chills. Reports right lower extremity redness, warmth and discomfort which began overnight. Denies injury to right lower extremity. - Physical Exam Vitals/I&O's: Vital Signs Temp Pulse Resp BP Pulse Ox 99.6 F H 109 H 18 137/72 H 94 05/11/20 09:45 05/11/20 09:45 05/11/20 09:45 05/11/20 09:45 05/11/20 09:45 Oxygen Delivery Method Room Air Weight: 270 lb 1.06 oz Body Mass Index (BMI) 51.0 Intake and Output for Last 24 Hours 05/09/20 05/10/20 05/11/20 23:59 23:59 23:59 Intake Total 2049 5255 / 5255 Balance 2049 5255 / 5255 General: Alert, Oriented x3, Cooperative HEENT: Atraumatic, PERRLA, EOMI, Normocephalic Neck: Supple, No JVD, Negative Carotid Bruits Lungs: Clear to auscultation, Normal air movement Cardiovascular: Regular Rhythm, Normal S1, Normal S2, No murmurs, Tachycardic Abdomen: Bowel Sounds Present, Soft, Non Tender, Non-Distended, Obese Extremities: No clubbing, No cyanosis, Capillary Refill Less than 3 Seconds, Edema - RLE Skin: - - Right lower extremity redness, warmth Musculoskeletal: No Tenderness to Palpation of Joints or Extremities Neurological: Cranial nerves II-XII grossly intact, Neuro grossly intact Psych/Mental Status: Normal Affect, Appropriate Microbiology Past 72 Hours 05/10/20 22:05 Urine, Clean Catch Streptococcus pneumoniae Antigen (M - Final 05/10/20 22:05 Urine, Clean Catch Legionella Antigen - Final 05/10/20 19:48 Mucosa - Nasopharyngeal SARS-CoV-2 Antigen (Rapid) - Final Laboratory Results 05/10/20 17:40: Sodium 136, Potassium 5.0, Chloride 105, Carbon Dioxide 23.0, Anion Gap 8, BUN 13, Creatinine 0.97, Estim Creat Clear Calc 58.18, Est GFR (MDRD) Af Amer 82, Est GFR (MDRD) Non-Af 68, BUN/Creatinine Ratio 13.4, Glucose 165 H, Calcium 9.0, Total Bilirubin 0.50, AST 41 H, ALT 39, Alkaline Phosphatase 94, Troponin I < 0.015, Total Protein 7.5, Albumin 3.4, Globulin 4.1, Albumin/Globulin Ratio 0.8 L 05/10/20 19:51: WBC 17.4 H, RBC 4.52, Hgb 11.9 L, Hct 39.5, MCV 87.4, MCH 26.3 L, MCHC 30.1 L, RDW Std Deviation 46.4 H, RDW Coeff of Javan 14.4, Plt Count 263, MPV 10.6, Immature Gran % (Auto) 0.600, Neut % (Auto) 85.8 H, Lymph % (Auto) 8.6 L, [place] % (Auto) 4.6, Eos % (Auto) 0.2, Baso % (Auto) 0.2, Absolute Neuts (auto) 14.9 H, Absolute Lymphs (auto) 1.49, Nucleated RBC % 0 05/10/20 19:51: PT 14.6, INR 1.2, APTT 29.4 05/10/20 19:51: Lactic Acid 2.5 H* 05/10/20 22:05: Urine Color Yellow, Urine Clarity Clear, Urine pH 5.0, Ur Specific [place] 1.010, Urine Protein 15 H, Urine Glucose (UA) Normal, Urine Ketones Negative, Urine Occult Blood 25 H, Urine Nitrite Negative, Urine Bilirubin Negative, Urine Urobilinogen Normal, Ur Leukocyte Esterase Negative, Urine RBC 0-5 SEEN, Urine WBC 0 SEEN, Ur Squamous Epith Cells 0-5 SEEN, Urine Bacteria 0 SEEN, Urine Mucus 0 SEEN 05/11/20 00:35: COVID-19 (CHETAN) Not Detected 05/11/20 01:00: Lactic Acid 3.3 H* 05/11/20 05:40: WBC 25.6 H, RBC 4.14 L, Hgb 11.2 L, Hct 36.5 L, MCV 88.2, MCH 27.1, MCHC 30.7 L, RDW Std Deviation 47.2 H, RDW Coeff of Javan 14.7 H, Plt Count 219, MPV 10.6, Immature Gran % (Auto) 1.700 H, Neut % (Auto) 91.6 H, Lymph % (Auto) 3.8 L, [place] % (Auto) 2.2, Eos % (Auto) 0.4, Baso % (Auto) 0.3, Absolute Neuts (auto) 23.5 H, Absolute Lymphs (auto) 0.96, Nucleated RBC % 0, Differential Comment SCANNED 05/11/20 05:40: Sodium 140, Potassium 3.8, Chloride 109 H, Carbon Dioxide 23.0, Anion Gap 8, BUN 10, Creatinine 0.78, Estim Creat Clear Calc 72.35, Est GFR (MDRD) Af Amer 105, Est GFR (MDRD) Non-Af 87, BUN/Creatinine Ratio 12.9, Glucose 183 H, Calcium 7.6 L 05/11/20 05:40: Lactic Acid 2.3 H* 05/11/20 10:25: Lactic Acid Pending Current Medications Acetaminophen (Acetaminophen 325 Mg Tablet) 650 mg PO Q6H PRN PRN PRN Reason: Pain Score 1-10/Temp > 100.7 F Last Admin: 05/11/20 07:50 Dose: 650 mg Documented by: Albuterol Sulfate (Albuterol 2.5 Mg/3 Ml Vial.Neb.) 2.5 mg INHALATION Q4H PRN PRN PRN Reason: WHEEZING Last Admin: 05/11/20 08:25 Dose: 2.5 mg Documented by: Enoxaparin Sodium (Enoxaparin 40 Mg/0.4 Ml Syringe) 40 mg SC BID [facility] Last Admin: 05/11/20 07:51 Dose: 40 mg Documented by: Ceftriaxone Sodium 2 gm/ (Sodium Chloride) 50 mls @ 100 mls/hr IV Q24H [facility] Azithromycin 500 mg/ Dextrose 255 mls @ 250 mls/hr IV Q24H [facility] Sodium Chloride () 250 mls @ 15 mls/hr IV .[id number] PRN PRN Reason: Saline Flush Sodium Chloride () 250 mls @ 15 mls/hr IV .[id number] PRN PRN Reason: Additional IVPB Infusion Loratadine (Loratadine 10 Mg Tablet) 10 mg PO DAILY [facility] Last Admin: 05/11/20 07:51 Dose: 10 mg Documented by: Nitroglycerin (Nitroglycerin (Inpatient Use) 0.4 Mg Tab.Subl) 0.4 mg SUBLINGUAL Q5M PRN PRN Reason: CARDIAC/CHEST PAIN Ondansetron HCl (Ondansetron 4 Mg/2 Ml Vial) 4 mg IV Q6H PRN PRN PRN Reason: NAUSEA/VOMITING Sodium Chloride (0.9% Saline Lock 10 Ml Syringe) 10 - 40 ml IV UD PRN PRN Reason: SALINE FLUSH Last Admin: 05/11/20 04:19 Dose: 10 ml Documented by: Medical Necessity - Tobacco Use Smoking Status: Never smoker Tobacco Use: Non-smoker Assessment/Plan 1. Severe Sepsis secondary to pneumonitis and right lower extremity cellulitis-CTA of chest shows mild pneumonitis. Right lower extremity with cellulitis appearance. Obtain duplex right lower extremity to rule out DVT. Continue IV azithromycin and IV Rocephin. Albuterol and DuoNeb aerosols. Blood cultures pending. 2. History of migraines-patient reports headache this morning. As needed Toradol ordered. 3. Chronic intermittent asthma-no exacerbation. As needed albuterol aerosol. 4. Morbid obesity-encouraged diet and lifestyle modifications. DVT prophylaxis-Lovenox subcu This patient was seen by ILIANA Gaspar under the supervision of Dr. Martines. <Neal Martines - Last Filed: 05/11/20 12:54> - Physical Exam Vitals/I&O's: Vital Signs Temp Pulse Resp BP Pulse Ox 99.6 F H 109 H 18 137/72 H 94 05/11/20 09:45 05/11/20 09:45 05/11/20 09:45 05/11/20 09:45 05/11/20 09:45 Oxygen Delivery Method Room Air Weight: 122.5 kg Body Mass Index (BMI) 51.0 Intake and Output for Last 24 Hours 05/09/20 05/10/20 05/11/20 23:59 23:59 23:59 Intake Total 2049 5495 / 5495 Balance 2049 5495 / 5495 Microbiology Past 72 Hours 05/10/20 22:05 Urine, Clean Catch Streptococcus pneumoniae Antigen (M - Final 05/10/20 22:05 Urine, Clean Catch Legionella Antigen - Final 05/10/20 19:48 Mucosa - Nasopharyngeal SARS-CoV-2 Antigen (Rapid) - Final Laboratory Results 05/10/20 17:40: Sodium 136, Potassium 5.0, Chloride 105, Carbon Dioxide 23.0, Anion Gap 8, BUN 13, Creatinine 0.97, Estim Creat Clear Calc 58.18, Est GFR (MDRD) Af Amer 82, Est GFR (MDRD) Non-Af 68, BUN/Creatinine Ratio 13.4, Glucose 165 H, Calcium 9.0, Total Bilirubin 0.50, AST 41 H, ALT 39, Alkaline Phosphatase 94, Troponin I < 0.015, Total Protein 7.5, Albumin 3.4, Globulin 4.1, Albumin/Globulin Ratio 0.8 L 05/10/20 19:51: WBC 17.4 H, RBC 4.52, Hgb 11.9 L, Hct 39.5, MCV 87.4, MCH 26.3 L, MCHC 30.1 L, RDW Std Deviation 46.4 H, RDW Coeff of Javan 14.4, Plt Count 263, MPV 10.6, Immature Gran % (Auto) 0.600, Neut % (Auto) 85.8 H, Lymph % (Auto) 8.6 L, [place] % (Auto) 4.6, Eos % (Auto) 0.2, Baso % (Auto) 0.2, Absolute Neuts (auto) 14.9 H, Absolute Lymphs (auto) 1.49, Nucleated RBC % 0 05/10/20 19:51: PT 14.6, INR 1.2, APTT 29.4 05/10/20 19:51: Lactic Acid 2.5 H* 05/10/20 22:05: Urine Color Yellow, Urine Clarity Clear, Urine pH 5.0, Ur Specific [place] 1.010, Urine Protein 15 H, Urine Glucose (UA) Normal, Urine Ketones Negative, Urine Occult Blood 25 H, Urine Nitrite Negative, Urine Bilirubin Negative, Urine Urobilinogen Normal, Ur Leukocyte Esterase Negative, Urine RBC 0-5 SEEN, Urine WBC 0 SEEN, Ur Squamous Epith Cells 0-5 SEEN, Urine Bacteria 0 SEEN, Urine Mucus 0 SEEN 05/11/20 00:35: COVID-19 (CHETAN) Not Detected 05/11/20 01:00: Lactic Acid 3.3 H* 05/11/20 05:40: WBC 25.6 H, RBC 4.14 L, Hgb 11.2 L, Hct 36.5 L, MCV 88.2, MCH 27.1, MCHC 30.7 L, RDW Std Deviation 47.2 H, RDW Coeff of Javan 14.7 H, Plt Count 219, MPV 10.6, Immature Gran % (Auto) 1.700 H, Neut % (Auto) 91.6 H, Lymph % (Auto) 3.8 L, [place] % (Auto) 2.2, Eos % (Auto) 0.4, Baso % (Auto) 0.3, Absolute Neuts (auto) 23.5 H, Absolute Lymphs (auto) 0.96, Nucleated RBC % 0, Differential Comment SCANNED 05/11/20 05:40: Sodium 140, Potassium 3.8, Chloride 109 H, Carbon Dioxide 23.0, Anion Gap 8, BUN 10, Creatinine 0.78, Estim Creat Clear Calc 72.35, Est GFR (MDRD) Af Amer 105, Est GFR (MDRD) Non-Af 87, BUN/Creatinine Ratio 12.9, Glucose 183 H, Calcium 7.6 L 05/11/20 05:40: Lactic Acid 2.3 H* 05/11/20 10:25: Lactic Acid 3.3 H* 05/11/20 11:45: MRSA (PCR) Pending Current Medications Acetaminophen (Acetaminophen 325 Mg Tablet) 650 mg PO Q6H PRN PRN PRN Reason: Pain Score 1-10/Temp > 100.7 F Last Admin: 05/11/20 07:50 Dose: 650 mg Documented by: Albuterol Sulfate (Albuterol 2.5 Mg/3 Ml Vial.Neb.) 2.5 mg INHALATION Q4H PRN PRN PRN Reason: WHEEZING Last Admin: 05/11/20 08:25 Dose: 2.5 mg Documented by: Enoxaparin Sodium (Enoxaparin 40 Mg/0.4 Ml Syringe) 40 mg SC BID [facility] Last Admin: 05/11/20 07:51 Dose: 40 mg Documented by: Ceftriaxone Sodium 2 gm/ (Sodium Chloride) 50 mls @ 100 mls/hr IV Q24H [facility] Sodium Chloride () 250 mls @ 15 mls/hr IV .[id number] PRN PRN Reason: Saline Flush Sodium Chloride () 250 mls @ 15 mls/hr IV .[id number] PRN PRN Reason: Additional IVPB Infusion Sodium Chloride () 1,000 mls @ 125 mls/hr IV .Q8H [facility] Last Admin: 05/11/20 11:57 Dose: 125 mls/hr Documented by: Vancomycin IV Pharmacy to Dose (1 ea/ Sodium Chloride) 500 mls @ 250 mls/hr IV X1 THEN RX TO DOSE ONE; Protocol Stop: 05/11/20 14:44 Ketorolac Tromethamine (Ketorolac 15 Mg/Ml Vial) 15 mg IV Q8H PRN PRN PRN Reason: Pain 1-10 or Fever Stop: 05/16/20 11:16 Last Admin: 05/11/20 11:56 Dose: 15 mg Documented by: Loratadine (Loratadine 10 Mg Tablet) 10 mg PO DAILY [facility] Last Admin: 05/11/20 07:51 Dose: 10 mg Documented by: Nitroglycerin (Nitroglycerin (Inpatient Use) 0.4 Mg Tab.Subl) 0.4 mg SUBLINGUAL Q5M PRN PRN Reason: CARDIAC/CHEST PAIN Ondansetron HCl (Ondansetron 4 Mg/2 Ml Vial) 4 mg IV Q6H PRN PRN PRN Reason: NAUSEA/VOMITING Last Admin: 05/11/20 12:03 Dose: 4 mg Documented by: Sodium Chloride (0.9% Saline Lock 10 Ml Syringe) 10 - 40 ml IV UD PRN PRN Reason: SALINE FLUSH Last Admin: 05/11/20 11:57 Dose: 10 ml Documented by: Assessment/Plan This patient was seen in conjunction with ILIANA Gaspar . I have independently interviewed and examined the patient and reviewed pertinent historical, laboratory, and other data. Please refer to ILIANA Gaspar note for details of this patient's presentation, findings, and recommendations. I have reviewed ILIANA Gaspar note and concur with documented findings. In brief, patient is a 39-year-old lady who presented with chest discomfort. Patient patient including CTA of the chest was consistent with acute pneumonitis. Patient was also found to have erythema and warmth involving the right lower extremity. An assessment of severe sepsis made admitted to a monitored bed for further management Physical Examination: GENERAL: cooperative HEENT: Atraumatic; EYES; Anicteric, Normal Conjunctiva NECK; supple, normal thyroid, RESPIRATORY: Diminished to auscultation CARDIOVASCULAR: Regular S1 S2, GI: soft, normoactive bowel sounds, : No Renal angle tenderness; EXTREMITIES: No edema, no clubbing, MUSCULOSKELETAL: no muscle waisting NEURO: Awake; no lateralizing signs. SKIN: Erythema and warmth involving the distal half of the right lower extremity circumferentially PSYCH; Flat affect Assessment: 1. Severe sepsis 2. Right lower extremity cellulitis 3. Pneumonitis 4. Moderate intermittent asthma 5. Morbid obesity with BMI of 51 6. Chronic migraines 7. DVT prophylaxis Recommendations: 1. I have discussed the results of my overview and impressions with the patient 2. Options for management were reviewed Inpatient E&M: 20278 [facility] Hosp L3
--- NOTE | 2020-05-11 11:11 | VDLE_ITS ---
Reason For Study: RLE PAIN RIGHT GSV is normal. CFV is compressible, spontaneous, phasic, competent and demonstrates normal augmentation. FV is compressible, spontaneous, phasic, competent and demonstrates normal augmentation. POP V is compressible, spontaneous, phasic, competent and demonstrates normal augmentation. T/P Trunk is compressible. PTV is compressible. RT PerV is compressible. Procedure This is a venous duplex using B-mode, color flow and spectral Doppler. Exam performed portable in patient room. The study was technically difficult. Due to obesity. A preliminary report was called and/or faxed to [facility]. Interpretation Summary There is no evidence of right lower extremity deep vein thrombosis. Right great saphenous vein appears patent and compressible segmentally. Technically difficult examination secondary to patient body habitus Ordering Physician: Jo Crooks Referring Physician: Marta Hernandez Performed By: Milena Lopez, CATHIE, RVT
[2020-05-11 11:13] LABS: Lactic Acid 3.3 mmol/L (0.4-1.9)
[2020-05-11] MEDS: Ketorolac 15 MG/ML Vial IV ×2 (11:56→19:45)
[2020-05-11] MEDS: dexAMETHasone 10 MG/ML Vial IV (11:56)
[2020-05-11] MEDS: 0.9% Normal Saline 1,000 ML 125 ML IV ×2 (11:57→23:58)
[2020-05-11 14:16] LABS: M R Staph aureus DNA By PCR Negative (Negative); Probe Check PASS; Specimen Processing Control PASS
--- NOTE | 2020-05-11 14:23 | PCM.RX.CS ---
Consult Pharmacy has been consulted to manage selected antiobiotic: Vancomycin Type of Consult: New start Labs: Sodium 140 mmol/L (136-145) 05/11/20 05:40 Potassium 3.8 mmol/L (3.5-5.1) 05/11/20 05:40 Chloride 109 mmol/L (98-107) H 05/11/20 05:40 Carbon Dioxide 23.0 mmol/L (21.0-32.0) 05/11/20 05:40 Anion Gap 8 (5-15) 05/11/20 05:40 BUN 10 mg/dL (7-18) 05/11/20 05:40 Creatinine 0.78 mg/dL (0.55-1.02) 05/11/20 05:40 Est GFR (MDRD) Af Amer 105 mL/min (>60) 05/11/20 05:40 Est GFR (MDRD) Non-Af 87 mL/min (>60) 05/11/20 05:40 BUN/Creatinine Ratio 12.9 RATIO (10-20) 05/11/20 05:40 Glucose 183 mg/dL (74-106) H 05/11/20 05:40 Microbiology: Microbiology 05/10/20 22:05 Urine, Clean Catch Streptococcus pneumoniae Antigen (M - Final 05/10/20 22:05 Urine, Clean Catch Legionella Antigen - Final 05/10/20 19:48 Mucosa - Nasopharyngeal SARS-CoV-2 Antigen (Rapid) - Final Weight used for dosin.5 kg Estimated Creatinine Clearance: 117 ML/MIN Goal Trough: 10-15 mcg/mL Pharmacy Plan for Drug Dosing: Give inital dose of 1750mg IV x1, then continue with 1750mg IV q12h per [facility] dosing chart. Will order a trough before the 4th total dose. The patient's CrCl of 117ml/min was calculated using an adjusted body weight of 77.7kg. Pharmacy Service will continue to monitor and adjust dosing as required. Follow-Up Labs: Trough Vancomycin Labs to be done on [date and time ordered]: 05/12 716
[2020-05-11] MEDS: proMETHazine 25 MG/ML Syringe 12.5 MG IM ×2 (15:08→20:41)
[2020-05-11] MEDS: MELATONIN 3 MG TABLET PO (21:32)
[2020-05-12 02:59] VITALS: PULSE 91
[2020-05-12 03:04] VITALS: PULSE 92; RESP 20
[2020-05-12] MEDS: Albuterol 2.5 MG/3 ML VIAL.NEB. INHALATION ×2 (03:04→07:15)
[2020-05-12 03:45] VITALS: BP 148/95; PULSE 110; RESP 18; TEMP 37.1; O2SAT 93
[2020-05-12] MEDS: Ketorolac 15 MG/ML Vial IV (03:56)
[2020-05-12] MEDS: proMETHazine 25 MG/ML Syringe 12.5 MG IM (03:56)
[2020-05-12 06:05] LABS: Hematocrit 34.5 % (37-47); Hemoglobin 10.9 g/dL (12.0-15.0); Mean Corp Hgb Conc 31.6 g/dL (32-36); Mean Corpuscular Hgb 27.2 pg (27.0-32.0); Mean Platelet Vol. 11.1 fl (6.2-12.0); Platelet Count 185 K/mm3 (150-450); RBC Distribution Width CV 14.2 % (11.6-14.6); RBC Distribution Width SD 44.9 fl (35.1-43.9); Red Blood Count 4.01 M/mm3 (4.2-5.4); White Blood Count 22.8 K/mm3 (4.4-11.0)
[2020-05-12 06:44] LABS: Anion Gap 8 (5-15); BUN 11 mg/dL (7-18); BUN/Creat Ratio 13.8 RATIO (10-20); Calcium,Total 8.2 mg/dL (8.5-10.1); Chloride 110 mmol/L (98-107); EST Glomerular Filtration Rate 84 mL/min (>60); Est Glom Filt Rate - Afr Amer 102 mL/min (>60); Estimated Creatinine Clearance 70.54 ml/min; Glucose 282 mg/dL (74-106); Potassium 3.9 mmol/L (3.5-5.1); Sodium Level 135 mmol/L (136-145)
[2020-05-12 06:59] VITALS: PULSE 81
[2020-05-12 07:15] VITALS: PULSE 90; RESP 18
[2020-05-12 08:51] LABS: Hemoglobin A1c 7.8 % (3.8-5.6)
[2020-05-12 09:03] VITALS: BP 147/95; PULSE 94; RESP 18; TEMP 36.9; O2SAT 98
[2020-05-12] MEDS: Acetaminophen 325 MG Tablet 650 MG PO (09:04)
[2020-05-12] MEDS: Enoxaparin 40 MG/0.4 ML Syringe SC (09:04)
[2020-05-12] MEDS: Loratadine 10 MG Tablet PO (09:04)
[2020-05-12] MEDS: Ondansetron 4 MG/2 ML Vial IV (09:04)
[2020-05-12] MEDS: 0.9% Saline Lock 10 ML Syringe IV (09:05)
--- NOTE | 2020-05-12 10:59 | CASEMGMT ---
KAREN CHEEMA assessment: Face to Face with patient for initial transition planning/care coordination assessment. KAREN CHEEMA introduced self and role at [facility], pt voices understanding and consents to assessment at this time. Pt is sitting up in chair in no distress at this time. Pt is A/Ox4 at this time and answers all questions appropriately at this time. Care providers, pharmacy, and demographics verified at this time. Presentation: Pt arrives w/ CP for 20min Admitting dx: SIRS, pneumonitis, cellulitis PCP: Mary Specialists: Isak colon surgeon at [facility]; Reilly Williamson at [facility] Preferred Pharmacy: [facility] Insurance: [employer] Prescription Benefit: [place] Living Will/HPOA: Pt states does not have LW/HPOA and declines AD info at this time. LNOK: Gustavo, Living Arrangements: Pt states lives with and children in duplex with stairs and states no concerns at home at this time. Pt states is independent with ADL's. Transportation: Pt states drives self and states no transportation concerns at this time. DME/HHC: Pt states no current DME or need for any DME at this time. Pt states no hx of HHC or SNF in the past. Pt states no concerns with going home at time of discharge. 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 Pt states does not smoke cigarettes or drink ETOH. Pt states no further concerns/needs at this time. CM to follow for any further discharge planning/needs. Advised pt to ask for CM if any further questions/concerns/needs arise, voices understanding. Pt Goal: Home Plan: Home [place] KAREN CHEEMA
--- NOTE | 2020-05-12 11:14 | DCINST_ITS ---
You will use the following diet at home:: Calorie/Carbohydrate Controlled (specify 1200, 1400, etc) Discharge Activity: Return to Normal Activity Call your doctor if you observe: Shortness of breath, Dizziness, Fainting spells, Chest pain Allergies/Adverse Reactions: Allergies bee venom protein (honey bee) Allergy (Verified 05/11/20 03:35) Anaphylaxis codeine Allergy (Verified 05/11/20 03:35) Rash AND N/V latex Allergy (Verified 05/11/20 03:35) Rash metoclopramide HCl [From Reglan] Allergy (Verified 05/11/20 03:35) Rash Medications to take at Discharge Albuterol Inhaler [Ventolin Hfa] 1 - 2 puff INHALATION Q6H PRN PRN 01/17/15 Albuterol Aerosols [Ventolin Aerosols] 2.5 mg INHALATION Q4H PRN PRN 01/02/20 Cetirizine HCl [Zyrtec] 10 mg PO DAILY #14 cap 01/02/20 Epi Pen [Epi-Pen] 0.3 mg IM X1 #2 syringe 01/02/20 Cephalexin [Keflex] 500 mg PO Q6 #36 cap 05/12/20 Lisinopril [Zestril] 5 mg PO DAILY #30 tab 05/12/20 Prednisone 40 mg PO DAILY #10 tab 05/12/20 The following prescriptions were given: Cephalexin [Keflex] 500 mg PO Q6 #36 cap Transmission Status: Pending to [id number] Prednisone 40 mg PO DAILY #10 tab Transmission Status: Pending to [id number] Lisinopril [Zestril] 5 mg PO DAILY #30 tab Transmission Status: Pending to [id number] Primary Care Physician: Marta Hernandez MD [Primary Care Provider] - Please follow up with your Primary Care Physician in: 3-5 Days Test Results: Test results from this visit will be discussed in further detail at your follow- up appointment, if applicable. Proposed Discharge Date: 05/12/20
--- NOTE | 2020-05-12 11:15 | PCM.DC.SUM ---
<Jo Crooks HEAD OF [employer]ING [employer] - Last Filed: 05/12/20 11:22> Discharge Date and Diagnosis Date of Admission: 05/10/20 Date of Discharge: 05/12/20 - Primary Discharge Diagnosis Acute Problems: 1. Severe Sepsis secondary right lower extremity cellulitis, pneumonia ruled out 2. History of migraines 3. Chronic intermittent asthma with mild exacerbation 4. Morbid obesity Hospital Course and Treatment Imaging Results: Diagnostic Data Chest X-Ray 05/10/20 19:00 IMPRESSION: Nonspecific increased prominence of the pulmonary vascular and interstitial markings which may be artifactual or indicate edema versus infection in the appropriate clinical setting. Electronically Signed: Juice Israel MD at 19:30 EST Tel , Service support , Chest CTA 05/10/20 20:19 IMPRESSION: Possible mild edema or pneumonitis not typical for covid 19 at this time. Electronically Signed: Eliezer Mejia MD at 22:22 EST , Service support , Operations: None Procedures: None Summary of Care Provided: The patient is a 39 year old F admitted 05/10/2020 due to chest pain. 1. Severe Sepsis secondary right lower extremity cellulitis, pneumonia ruled out-CTA of chest showed possible mild pneumonitis. Right lower extremity cellulitis improving. Discharged on Keflex to complete 10-day course. Patient does not have shortness of breath, cough. No clinical evidence of pneumonia. 2. History of migraines-continue home as needed regimen. 3. Chronic intermittent asthma, mild exacerbation-prednisone 40 mg daily for 5 days at discharge. As needed albuterol aerosol. 4. Morbid obesity-encouraged diet and lifestyle modifications. General: Alert, Oriented x3, Cooperative HEENT: Atraumatic, PERRLA, EOMI, Normocephalic Neck: Supple, No JVD, Negative Carotid Bruits Lungs: Clear to auscultation, Normal air movement Cardiovascular: Regular Rhythm, Normal S1, Normal S2, No murmurs, Tachycardic Abdomen: Bowel Sounds Present, Soft, Non Tender, Non-Distended, Obese Extremities: No clubbing, No cyanosis, Capillary Refill Less than 3 Seconds, Edema - RLE Skin: Right lower extremity cellulitis Musculoskeletal: No Tenderness to Palpation of Joints or Extremities Neurological: Cranial nerves II-XII grossly intact, Neuro grossly intact Psych/Mental Status: Normal Affect, Appropriate Patient seen and examined prior to discharge. Physical assessment as noted above. Patient is stable for discharge with follow up recommendations as noted above. This patient was seen by ILIANA Gaspar under the supervision of Dr. Hernandez. - Physical Exam Vitals/I&O's: Vital Signs Temp Pulse Resp BP Pulse Ox 98.4 F 94 18 147/95 H 98 05/12/20 09:03 05/12/20 09:03 05/12/20 09:03 05/12/20 09:03 05/12/20 09:03 Oxygen Delivery Method Room Air Weight: 270 lb 1.06 oz Body Mass Index (BMI) 51.0 Intake and Output for Last 24 Hours 05/10/20 05/11/20 05/12/20 23:59 23:59 23:59 Intake Total 2049 7980.00 / 8460.00 Balance 2049 7980.00 / 8460.00 Microbiology Past 72 Hours 05/10/20 22:05 Urine, Clean Catch Urine Culture - Final Mixed Gram Positive Organisms 05/10/20 22:05 Urine, Clean Catch Streptococcus pneumoniae Antigen (M - Final 05/10/20 22:05 Urine, Clean Catch Legionella Antigen - Final 05/10/20 19:48 Mucosa - Nasopharyngeal SARS-CoV-2 Antigen (Rapid) - Final Laboratory Results 05/11/20 11:45: MRSA (PCR) Negative 05/12/20 05:52: WBC 22.8 H, RBC 4.01 L, Hgb 10.9 L, Hct 34.5 L, MCV 86.0, MCH 27.2, MCHC 31.6 L, RDW Std Deviation 44.9 H, RDW Coeff of Javan 14.2, Plt Count 185, MPV 11.1 05/12/20 05:52: Sodium 135 L, Potassium 3.9, Chloride 110 H, Carbon Dioxide 17.0 L, Anion Gap 8, BUN 11, Creatinine 0.80, Estim Creat Clear Calc 70.54, Est GFR (MDRD) Af Amer 102, Est GFR (MDRD) Non-Af 84, BUN/Creatinine Ratio 13.8, Glucose 282 H, Calcium 8.2 L 05/12/20 05:52: Hemoglobin A1c 7.8 H Current Medications Acetaminophen (Acetaminophen 325 Mg Tablet) 650 mg PO Q6H PRN PRN PRN Reason: Pain Score 1-10/Temp > 100.7 F Last Admin: 05/12/20 09:04 Dose: 650 mg Documented by: Albuterol Sulfate (Albuterol 2.5 Mg/3 Ml Vial.Neb.) 2.5 mg INHALATION Q4H PRN PRN PRN Reason: WHEEZING Last Admin: 05/12/20 07:15 Dose: 2.5 mg Documented by: Enoxaparin Sodium (Enoxaparin 40 Mg/0.4 Ml Syringe) 40 mg SC BID [facility] Last Admin: 05/12/20 09:04 Dose: 40 mg Documented by: Hydralazine HCl (Hydralazine 20 Mg/Ml Vial) 10 mg IV Q6H PRN PRN PRN Reason: SBP>160 or DBP >110 Ceftriaxone Sodium 2 gm/ (Sodium Chloride) 50 mls @ 100 mls/hr IV Q24H [facility] Last Infusion: 05/11/20 22:05 Dose: Infused Documented by: Sodium Chloride () 250 mls @ 15 mls/hr IV .[id number] PRN PRN Reason: Saline Flush Sodium Chloride () 250 mls @ 15 mls/hr IV .[id number] PRN PRN Reason: Additional IVPB Infusion Sodium Chloride () 1,000 mls @ 125 mls/hr IV .Q8H [facility] Last Infusion: 05/12/20 10:00 Dose: 125 mls/hr Documented by: Vancomycin HCl 1,750 mg/ (Sodium Chloride) 535 mls @ 250 mls/hr IV Q12H [facility] Last Infusion: 05/12/20 04:24 Dose: Infused Documented by: Vancomycin IV Pharmacy to Dose (1 ea/ Sodium Chloride) 500 mls @ 250 mls/hr IV X1 THEN RX TO DOSE PRN; Protocol PRN Reason: vancomycin dosing Ketorolac Tromethamine (Ketorolac 15 Mg/Ml Vial) 15 mg IV Q8H PRN PRN PRN Reason: Pain 1-10 or Fever Stop: 05/16/20 11:16 Last Admin: 05/12/20 03:56 Dose: 15 mg Documented by: Loratadine (Loratadine 10 Mg Tablet) 10 mg PO DAILY [facility] Last Admin: 05/12/20 09:04 Dose: 10 mg Documented by: Melatonin (Melatonin 3 Mg Tablet) 3 mg PO QHS [facility] Last Admin: 05/11/20 21:32 Dose: 3 mg Documented by: Nitroglycerin (Nitroglycerin (Inpatient Use) 0.4 Mg Tab.Subl) 0.4 mg SUBLINGUAL Q5M PRN PRN Reason: CARDIAC/CHEST PAIN Ondansetron HCl (Ondansetron 4 Mg/2 Ml Vial) 4 mg IV Q6H PRN PRN PRN Reason: NAUSEA/VOMITING Last Admin: 05/12/20 09:04 Dose: 4 mg Documented by: Promethazine HCl (Promethazine 25 Mg/Ml Syringe) 12.5 mg IM Q6H PRN PRN PRN Reason: NAUSEA/VOMITING Last Admin: 05/12/20 03:56 Dose: 12.5 mg Documented by: Sodium Chloride (0.9% Saline Lock 10 Ml Syringe) 10 - 40 ml IV UD PRN PRN Reason: SALINE FLUSH Last Admin: 05/12/20 09:05 Dose: 10 ml Documented by: Discharge Diet: Low fat/ Low Cholesterol, Carb Control Diet Discharge Activity: Return to Normal Activity Call your doctor if you observe: Shortness of breath, Dizziness, Fainting spells, Chest pain Home Medications: Medications to take at Discharge Albuterol Inhaler [Ventolin Hfa] 1 - 2 puff INHALATION Q6H PRN PRN 01/17/15 Albuterol Aerosols [Ventolin Aerosols] 2.5 mg INHALATION Q4H PRN PRN 01/02/20 Cetirizine HCl [Zyrtec] 10 mg PO DAILY #14 cap 01/02/20 Epi Pen [Epi-Pen] 0.3 mg IM X1 #2 syringe 01/02/20 Cephalexin [Keflex] 500 mg PO Q6 #36 cap 05/12/20 Lisinopril [Zestril] 5 mg PO DAILY #30 tab 05/12/20 Prednisone 40 mg PO DAILY #10 tab 05/12/20 Following Prescriptions Were Given to Patient: Cephalexin [Keflex] 500 mg PO Q6 #36 cap Transmission Status: Received by [id number] Prednisone 40 mg PO DAILY #10 tab Transmission Status: Received by [id number] Lisinopril [Zestril] 5 mg PO DAILY #30 tab Transmission Status: Received by [facility] #[id number] Primary Care Physician: Marta Hernandez MD [Primary Care Provider] - Please follow up with your Primary Care Physician in: 3-5 Days Disposition: Home Minutes spent on discharge:: 35 Patient Condition:: Stable Medical Necessity - Tobacco Use Smoking Status: Never smoker Tobacco Use: Non-smoker Meaningful Use Info Meaningful Use Diagnoses (Choose all that apply): None applicable <Salinas Hernandez - Last Filed: 05/12/20 17:03> Hospital Course and Treatment Operations: None Procedures: None Summary of Care Provided: Patient seen and examined independently. Data reviewed. I agree with the above note by the nurse practitioner. The patient is a 39 year old F presents with chest pain. Patient has CTA that showed possible pneumonitis. On my review did not appreciate much in the way of any pneumonia. Patient did, however, have cellulitis of her right lower extremity. Area was demarcated and patient was started on antibiotics. Patient did well and the area had retracted. Patient noted some blistering though I did not appreciate any blistering from it nor any woody appearance. But certainly from the area of demarcation it was greatly withdrawn. There was some areas slightly above the area of demarcation but overall appear to be improved from where was originally marked. Patient had no tenderness no fluctuance noted. Concerning for strep and patient will be discharged with cephalexin completed 10-day course of antibiotics. Concern is for the patient's respiratory symptoms it may been more of an asthma exacerbation. Patient did not have COVID-19. Patient will be discharged with prednisone and albuterol metered-dose inhaler. [] - Physical Exam Vitals/I&O's: Vital Signs Temp Pulse Resp BP Pulse Ox 36.9 C 94 18 147/95 H 98 05/12/20 09:03 05/12/20 09:03 05/12/20 09:03 05/12/20 09:03 05/12/20 09:03 Oxygen Delivery Method Room Air Weight: 122.5 kg Body Mass Index (BMI) 51.0 Intake and Output for Last 24 Hours 05/10/20 05/11/20 05/12/20 23:59 23:59 23:59 Intake Total 2049 7980.00 / 8460.00 / Balance 2049 7980.00 / 8460.00 2134. / General: Alert, No apparent distress Lungs: Clear to auscultation, Normal air movement, No rhonchi, No wheeze Cardiovascular: Regular rate, Regular Rhythm, Normal S1, Normal S2 Skin: - - Erythema in the anterior right cat mostly withdrawn from the area of demarcation no slight patch above the area of demarcation. Microbiology Past 72 Hours 05/10/20 22:05 Urine, Clean Catch Urine Culture - Final Mixed Gram Positive Organisms 05/10/20 22:05 Urine, Clean Catch Streptococcus pneumoniae Antigen (M - Final 05/10/20 22:05 Urine, Clean Catch Legionella Antigen - Final 05/10/20 19:48 Mucosa - Nasopharyngeal SARS-CoV-2 Antigen (Rapid) - Final Laboratory Results 05/12/20 05:52: WBC 22.8 H, RBC 4.01 L, Hgb 10.9 L, Hct 34.5 L, MCV 86.0, MCH 27.2, MCHC 31.6 L, RDW Std Deviation 44.9 H, RDW Coeff of Javan 14.2, Plt Count 185, MPV 11.1 05/12/20 05:52: Sodium 135 L, Potassium 3.9, Chloride 110 H, Carbon Dioxide 17.0 L, Anion Gap 8, BUN 11, Creatinine 0.80, Estim Creat Clear Calc 70.54, Est GFR (MDRD) Af Amer 102, Est GFR (MDRD) Non-Af 84, BUN/Creatinine Ratio 13.8, Glucose 282 H, Calcium 8.2 L 05/12/20 05:52: Hemoglobin A1c 7.8 H Discharge Diet: Low fat/ Low Cholesterol, Carb Control Diet Discharge Activity: Return to Normal Activity Call your doctor if your incision/area has: Increased Pain/ Swelling, Increased Redness Call your doctor if you observe: Shortness of breath, Dizziness, Fainting spells, Chest pain Disposition: Home Minutes spent on discharge:: 35 Patient Condition:: Stable Medical Necessity - Tobacco Use Smoking Status: Never smoker Tobacco Use: Non-smoker Meaningful Use Info Meaningful Use Diagnoses (Choose all that apply): None applicable Inpatient E&M: 47040 Disch Hosp
--- NOTE | 2020-05-12 11:25 | PCM.WORK.EX ---
Work/School Excuse Work/School Excuse for:: Patient Please excuse this person from:: Work From: 05/10/20 through: 05/15/20 - PCP f/u before returning
--- NOTE | 2020-05-12 12:17 | PHA.DC.MR ---
Pharmacy Service has performed discharge medication reconciliation for this patient. The patient's discharge medication list was reviewed for discrepancies and discrepancies were resolved. Home Medications Albuterol Inhaler [Ventolin Hfa] 1 - 2 puff INHALATION Q6H PRN PRN 01/17/15 Albuterol Aerosols [Ventolin Aerosols] 2.5 mg INHALATION Q4H PRN PRN 01/02/20 Cetirizine HCl [Zyrtec] 10 mg PO DAILY #14 cap 01/02/20 Epi Pen [Epi-Pen] 0.3 mg IM X1 #2 syringe 01/02/20 Cephalexin [Keflex] 500 mg PO Q6 #36 cap 05/12/20 Lisinopril [Zestril] 5 mg PO DAILY #30 tab 05/12/20 Prednisone 40 mg PO DAILY #10 tab 05/12/20
--- NOTE | 2020-05-13 15:11 | CASEMGMT ---
RN CM Discharge F/U Phone Call LACE: 10 Strata: 3 Discharge date: 05/12/20 Call date: 05/13/20 Call time: 1512 Attempted to reach pt without success at this time, message left for pt to call this RN CM back if/when able. [place] RN CM Admission dx: SIRS criteria, pneumonitis
== END 2020-05-12 12:12 | disposition home or self-care (01) | DRG 872 ==
LOC: ED 23:34 → PCU 05-11 03:12
PROVIDERS: Nurse Practitioner Family; Admitting Provider Student in an Organized Health Care Education/Training Program; Emergency Provider Emergency Medicine; PCP Internal Medicine
DX: A41.9 Sepsis, unspecified organism (principal); L03.115 Cellulitis of right lower limb; Z68.43 Body mass index [BMI] 50.0-59.9, adult; J45.21 Mild intermittent asthma with (acute) exacerbation; E87.2 Acidosis; R65.20 Severe sepsis without septic shock; G43.909 Migraine, unspecified, not intractable, without status migrainosus; E66.01 Morbid (severe) obesity due to excess calories
CPT/HCPCS: 36415; 71045; 71275; 80048; 80053; 81001; 83036; 83605; 84484; 85025; 85027; 85610; 85730; 87040; 87086; 87088; 87426; 87449; 87635; 87641; 93005; 93971; 94640; 97161; 97165; 99285; J7030; J7040; J7050; Q9967; A4216; J0696; J2405; U0002

== ENCOUNTER 2020-06-11 08:00 | Outpatient (RCR) | payer BC, SELFPAY ==
[2020-05-11 03:33] VITALS: BMI 51.0
[2020-05-28 08:14] VITALS: BP 180/77; PULSE 108; RESP 16; TEMP 35.8; BMI 48.3
--- NOTE | 2020-05-28 09:22 | PCM.WC.HP ---
(1) Blister (nonthermal), right lower leg, initial encounter Status: Acute Code(s): S80.821A - Blister (nonthermal), right lower leg, initial encounter (2) Unspecified open wound, right lower leg, initial encounter Status: Acute Code(s): S81.801A - Unspecified open wound, right lower leg, initial encounter (3) Obesity (BMI 30-39.9) Status: Acute Code(s): E66.9 - Obesity, unspecified (4) Diabetes type 2, uncontrolled Status: Acute Code(s): E11.65 - Type 2 diabetes mellitus with hyperglycemia (5) Hypertension Status: Chronic Code(s): I10 - Essential (primary) hypertension History of Present Illness Date of Service: 05/28/20 Chief Complaint: Follow-up right lower leg blisters now open wounds circumferential and right lower leg History of Wound: 39-year-old white female that was referred to us from [facility]. 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 At the hospital she was admitted and they noticed then her right lower leg blistering and then open wound circumferential of leg. Ultrasound shows no blockages of the veins or DVTs. She was also admitted for new onset diabetes, septicemia, hypertensive crisis. Patient was sent home on Metformin and antibiotic therapy, but was still short of breath and ended up in [facility] in [place]. She was admitted for 8 more days for increasing shortness of breath and low pulse ox. She also had fevers of 103. And was given more antibiotic therapy there. She then saw her primary care that referred her here to the wound center. Patient is currently on Augmentin and doxycycline for her leg. The leg is circumferential and completely scabbed with yellow slough. Past Medical History Past Medical History: Chronic Problems Hypertension (Chronic) Surgical History: noncontributory Allergies/Adverse Reactions: Allergies bee venom protein (honey bee) Allergy (Verified 05/28/20 08:37) Anaphylaxis codeine Allergy (Verified 05/28/20 08:37) Rash AND N/V latex Allergy (Verified 05/28/20 08:37) Rash metoclopramide HCl [From Reglan] Allergy (Verified 05/28/20 08:37) Rash Home Medications: Ambulatory Orders Medication Instructions Recorded Albuterol Inhaler [Ventolin Hfa] 1 - 2 puff INHALATION Q6H PRN PRN 01/17/15 Albuterol Aerosols [Ventolin 2.5 mg INHALATION Q4H PRN PRN 01/02/20 Aerosols] Cetirizine HCl [Zyrtec] 10 mg PO DAILY #14 cap 01/02/20 Epi Pen [Epi-Pen] 0.3 mg IM X1 #2 syringe 01/02/20 Amoxicillin 250 mg PO BID 05/28/20 Doxycycline 100 mg PO BID 05/28/20 Lisinopril [Zestril] 20 mg PO DAILY 05/28/20 Smoking Status: Never smoker Review of Systems Constitutional: Denies: Chills, Fever Eyes: Denies: Blurred vision, Drainage, Pain HEENT: Denies: Difficulty Hearing, Difficulty Swallowing, Sore Throat, Visual Changes Cardiovascular: Denies: Chest Pain, Palpitations, Syncope Respiratory: Denies: Cough, Shortness of Breath Gastrointestinal: Denies: Abdominal Pain, Nausea, Vomiting Genitourinary: Denies: Dysuria, Frequency Musculoskeletal: Denies: Joint Pain, Muscle pain Skin: Reports: - - Inferential scabbed yellow slough wounds right lower leg. Denies: Jaundice, Rash Neurological: Denies: Balance problems, Change in Speech, Difficulty swallowing, Focal weakness Psychiatric: Denies: Anxiety, Depression Endocrine: Denies: Change in Body Habitus Hematologic/ Lymphatic: Denies: Adenopathy - Physical Exam Vital Signs Temp Pulse Resp BP 96.5 F L 108 H 16 180/77 H 05/28/20 08:14 05/28/20 08:14 05/28/20 08:14 05/28/20 08:14 General: Oriented x3, Cooperative, Well developed HEENT: Atraumatic, PERRLA Oral: Moist Mucosa Neck: Supple, No JVD Lungs: Clear to auscultation, Normal air movement Cardiovascular: Regular rate, Regular Rhythm Abdomen: Bowel Sounds Present, Soft, Non Tender, No Hepato-splenomegaly Extremities: No clubbing, No edema Wound Measurements and Assessment WC - Nurse 1 - General Ulcer Measurement Start: 05/28/20 08:12 Freq: Status: Active Protocol: Activity Type Activity Date Activity User E-Sign Co-Sign Detail Recorded Client Recorded Date Recorded By Document 05/28/20 08:14 [facility] [id number] 05/28/20 08:36 [facility] 05/28/20 08:14 Wound Center Nurse 1 [Ulcer Assessment] #1- RLE CIRCUMFERENTIAL -Combined with other wound No -Current Size (cm) - Length 10.2 -Current Size (cm) - Width 35 -Current Size (cm) - Depth 0.2 -Total Square Cm 357.0 -Date of Last Picture (Recall this 05/28/20 field) -Photo Taken Yes -Epithelialization None Present -Tunneling No -Undermining/Tunneling No -Circular Undermining No -Exudate Amt Large -Exudate Type Serosanguineous -Wound Margin Distinct, Outline Attached -Granulation Amt Small (1-33%) -Granulation Quality Red -Slough/Fibrin Yes -Necrosis Amt Large (67-100%) -Necrotic Tissue Type Adherent Slough -Texture (Fawn-wound Skin Appearance) Assessed, Scarring -Moisture (Fawn-wound Skin Appearance Assessed ) -Color (Fawn-wound Skin Appearance) Assessed, Erythema -Temperature (Fawn-wound Skin No Abnormality Appearance) (Pt Warm) -Tenderness on Palpation (Fawn-wound No Skin Appearance) -Ulcer Cleansing SOAPY WATER -Foul Odor after Cleansing No -Anesthetic Used 4% Lidocaine Solution [Edema Assessment] -Lower Limb Edema Present Yes -Right Calf (cm) 45 -Right Ankle (cm) 25 -Left Calf (cm) 44.2 -Left Ankle (cm) 29 WC - Nurse 2 - General Ulcer CM Notes Start: 05/28/20 08:12 Freq: Status: Active Protocol: Activity Type Activity Date Activity User E-Sign Co-Sign Detail Recorded Client Recorded Date Recorded By Document 05/28/20 08:52 MW [id number] 05/28/20 09:18 MW 05/28/20 08:52 Wound Center Nurse 2 [Procedure/Treatment] #1- RLE CIRCUMFERENTIAL -Time 08:53 -Correct Patient Yes -Correct Side, Site, Position Yes -Correct Procedure Yes -Procedure Performed Yes -Type of Procedure Debridement -Clinical Debridement Subcutaneous -Tissue Removed Subcutaneous -Post Debridement (cm) - Length 10.2 -Post Debridement (cm) - Width 35.0 -Post Debridement (cm) - Depth 0.2 -Total Square (Post) (cm) 357.00 -Area of Debridement (cm) - Length 10.2 -Area of Debridement (cm) - Width 35.0 -Total Square (Area) (cm) 357.00 -Tunneling No -Undermining/Tunneling No -Circular Undermining No -Wound/Ulcer Outcome Not Healed -Ulcer Cleansing Rinsed/ Irrigated with Saline -Foul Odor after Cleansing No -Bioengineered Tissue No -Bleeding Controlled with Pressure -Offloading No -Treatment Response Procedure Tolerated Well -Debridement - Subq, 1st 20sq cm Yes -Debridement, SubQ, ea addt'l 20sq cm 17 or part thereof [See Physician Procedure note for Specifics] Pain Scale: 0-10 Numeric [Pain] -Is Patient Pain Free? Yes Musculoskeletal: No Tenderness to Palpation of Joints or Extremities Lymphatic: No Cervical, Supraclavicular, or Inguinal Adenopathy Neurological: Cranial nerves II-XII grossly intact, Neuro grossly intact Psych/Mental Status: Normal Affect, Appropriate Debridement Note Post-Debridement Measurements/Treatment WC - Nurse 2 - General Ulcer CM Notes Start: 05/28/20 08:12 Freq: Status: Active Protocol: Activity Type Activity Date Activity User E-Sign Co-Sign Detail Recorded Client Recorded Date Recorded By Document 05/28/20 08:52 MW [id number] 05/28/20 09:18 MW 05/28/20 08:52 Wound Center Nurse 2 #1- RLE CIRCUMFERENTIAL -Time 08:53 -Correct Patient Yes -Correct Side, Site, Position Yes -Correct Procedure Yes -Procedure Performed Yes -Type of Procedure Debridement -Clinical Debridement Subcutaneous -Tissue Removed Subcutaneous -Post Debridement (cm) - Length 10.2 -Post Debridement (cm) - Width 35.0 -Post Debridement (cm) - Depth 0.2 -Total Square (Post) (cm) 357.00 -Area of Debridement (cm) - Length 10.2 -Area of Debridement (cm) - Width 35.0 -Total Square (Area) (cm) 357.00 -Tunneling No -Undermining/Tunneling No -Circular Undermining No -Wound/Ulcer Outcome Not Healed -Ulcer Cleansing Rinsed/ Irrigated with Saline -Foul Odor after Cleansing No -Bioengineered Tissue No -Bleeding Controlled with Pressure -Offloading No -Treatment Response Procedure Tolerated Well -Debridement - Subq, 1st 20sq cm Yes -Debridement, SubQ, ea addt'l 20sq cm 17 or part thereof Pain Scale: 0-10 Numeric Is Patient Pain Free? Yes Wound debrided: Right lower leg Type of Debridement: Excisional debridement Anesthesia Used: 5% Lidocaine Gel Depth: Down to and including healthy tissue, in the subcutaneous layer Percentage of wound debrided: 100 Instrument Used: 7mm curette, #15 blade Tissue Removed: Devitalized tissue and slough Severity: Limited To Skin Breakdown Amount of bleeding with debridement: Mild Bleeding Controlled with: Compression and gauze Patient tolerated procedure well Assessment/Plan Aerobic and anaerobic cultures obtained Active Problems Blister (nonthermal), right lower leg, initial encounter (Acute) Unspecified open wound, right lower leg, initial encounter (Acute) Obesity (BMI 30-39.9) (Acute) Diabetes type 2, uncontrolled (Acute) Hypertension (Chronic) Assessment: Open wounds right lower leg nonhealing nonsurgical. Blisters right lower leg now open. Diabetes type 2 uncontrolled. Hypertension Plan: Wash right leg with antibacterial soap. Apply Xeroform dressings to wounds. Cover with ABD and Armando. Double layer Tubigrip. Follow-up in 1 week. We will call with results of the cultures continue antibiotic therapy
[2020-06-04 08:01] VITALS: BP 153/83; PULSE 109; RESP 16; TEMP 35.7; BMI 48.3
--- NOTE | 2020-06-04 08:55 | PN.PCM_ITS ---
(1) Blister (nonthermal), right lower leg, initial encounter Status: Acute Code(s): S80.821A - Blister (nonthermal), right lower leg, initial encounter (2) Unspecified open wound, right lower leg, initial encounter Status: Acute Code(s): S81.801A - Unspecified open wound, right lower leg, initial encounter (3) Obesity (BMI 30-39.9) Status: Acute Code(s): E66.9 - Obesity, unspecified (4) Diabetes type 2, uncontrolled Status: Acute Code(s): E11.65 - Type 2 diabetes mellitus with hyperglycemia (5) Hypertension Status: Chronic Code(s): I10 - Essential (primary) hypertension (6) Vasculitic ulcer of right lower extremity, limited to breakdown of skin Status: Acute Code(s): L97.911 - Non-pressure chronic ulcer of unspecified part of right lower leg limited to breakdown of skin Type of Wound Date of Service: 06/04/20 Chief Complaint: Follow-up right lower leg blisters now open wounds circumferential and right lower leg History of Wound: 39-year-old white female that was referred to us from [facility]. 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 At the hospital she was admitted and they noticed then her right lower leg blistering and then open wound circumferential of leg. Ultrasound shows no blockages of the veins or DVTs. She was also admitted for new onset diabetes, septicemia, hypertensive crisis. Patient was sent home on Metformin and antibiotic therapy, but was still short of breath and ended up in [facility] in [place]. She was admitted for 8 more days for increasing shortness of breath and low pulse ox. She also had fevers of 103. And was given more antibiotic therapy there. She then saw her primary care that referred her here to the wound center. Patient is currently on Augmentin and doxycycline for her leg. The leg is circumferential and completely scabbed with yellow slough. Progress of Wound: Today the wound is still circumferential purplish red raised rash around her leg possibly could be vasculitis the slough on the anterior part of the leg is completely gone. The posterior still has some scabbing of slough will continue using the Xeroform. We will also get some lab work a CRP and an FANY and start her on prednisone 40 mg a day for 10 days. Also her cultures came back positive for 4 different staph infections on her lower leg we will start her on linezolid this week and see if that helps. - Physical Exam Vital Signs Temp Pulse Resp BP 96.3 F L 109 H 16 153/83 H 06/04/20 08:01 06/04/20 08:01 06/04/20 08:01 06/04/20 08:01 General: Oriented x3, Cooperative, Well developed HEENT: Atraumatic, PERRLA Oral: Moist Mucosa Neck: Supple, No JVD Lungs: Clear to auscultation, Normal air movement Cardiovascular: Regular rate, Regular Rhythm Abdomen: Bowel Sounds Present, Soft, Non Tender, No Hepato-splenomegaly Extremities: No clubbing, No edema, - - Right lower leg circumferential vasculitis Wound Measurements and Assessment WC - Nurse 1 - General Ulcer Measurement Start: 05/28/20 08:12 Freq: Status: Active Protocol: Activity Type Activity Date Activity User E-Sign Co-Sign Detail Recorded Client Recorded Date Recorded By Document 06/04/20 08:01 [facility] [id number] 06/04/20 08:06 [facility] 06/04/20 08:01 Wound Center Nurse 1 [Ulcer Assessment] #1- RLE CIRCUMFERENTIAL -Combined with other wound No -Current Size (cm) - Length 18.4 -Current Size (cm) - Width 30 -Current Size (cm) - Depth 0.1 -Total Square Cm 552.0 -Photo Taken No -Epithelialization Medium 34-66% -Tunneling No -Undermining/Tunneling No -Circular Undermining No -Exudate Amt Medium -Exudate Type Serosanguineous -Wound Margin Distinct, Outline Attached -Granulation Amt Small (1-33%) -Granulation Quality Red -Slough/Fibrin Yes -Necrosis Amt Large (67-100%) -Necrotic Tissue Type Adherent Slough -Texture (Fawn-wound Skin Appearance) Assessed, Scarring -Moisture (Fawn-wound Skin Appearance Assessed ) -Color (Fawn-wound Skin Appearance) Assessed -Temperature (Fawn-wound Skin No Abnormality Appearance) (Pt Warm) -Tenderness on Palpation (Fawn-wound Yes Skin Appearance) -Ulcer Cleansing SOAPY WATER -Foul Odor after Cleansing No -Anesthetic Used 4% Lidocaine Solution [Edema Assessment] -Lower Limb Edema Present Yes -Right Calf (cm) 44 -Right Ankle (cm) 24.5 HARPREET - Nurse 2 - General Ulcer CM Notes Start: 05/28/20 08:12 Freq: Status: Active Protocol: Activity Type Activity Date Activity User E-Sign Co-Sign Detail Recorded Client Recorded Date Recorded By Document 06/04/20 08:16 MW [id number] 06/04/20 08:20 MW 06/04/20 08:16 Wound Center Nurse 2 [Procedure/Treatment] #1- RLE CIRCUMFERENTIAL -Time 08:16 -Correct Patient Yes -Correct Side, Site, Position Yes -Correct Procedure Yes -Procedure Performed Yes -Type of Procedure Debridement -Clinical Debridement Subcutaneous -Tissue Removed Subcutaneous -Post Debridement (cm) - Length 16.0 -Post Debridement (cm) - Width 5.0 -Post Debridement (cm) - Depth 0.1 -Total Square (Post) (cm) 80.00 -Area of Debridement (cm) - Length 16.0 -Area of Debridement (cm) - Width 5.0 -Total Square (Area) (cm) 80.00 -Tunneling No -Undermining/Tunneling No -Circular Undermining No -Wound/Ulcer Outcome Not Healed -Ulcer Cleansing Rinsed/ Irrigated with Saline -Foul Odor after Cleansing No -Bioengineered Tissue No -Bleeding Controlled with Pressure -Offloading No -Treatment Response Procedure Tolerated Well -Debridement - Subq, 1st 20sq cm Yes [See Physician Procedure note for Specifics] Pain Scale: 0-10 Numeric [Pain] -Is Patient Pain Free? Yes - Nurse 3 - General Ulcer D/C NN Start: 05/28/20 08:12 Freq: Status: Active Protocol: Activity Type Activity Date Activity User E-Sign Co-Sign Detail Recorded Client Recorded Date Recorded By Document 06/04/20 08:31 KR [id number] 06/04/20 08:35 KR 06/04/20 08:31 Wound Care Nurse 3 [Wound Dressing] #1- RLE CIRCUMFERENTIAL -Ulcer Cleansing Rinsed/ Irrigated with Saline -Foul Odor after Cleansing No -Primary Dressing Applied Other -Other Dressing XEROFORM -Primary Dressing Covered/Secured Dry Gauze, with Secured with Tape [Compression Applied] Right -Tubular Bandage Double Layer -Size of Tubigrip Used Size F -Size F ($) 2 Musculoskeletal: No Tenderness to Palpation of Joints or Extremities Lymphatic: No Cervical, Supraclavicular, or Inguinal Adenopathy Neurological: Cranial nerves II-XII grossly intact, Neuro grossly intact Psych/Mental Status: Normal Affect, Appropriate Debridement Note Post-Debridement Measurements/Treatment WC - Nurse 2 - General Ulcer CM Notes Start: 05/28/20 08:12 Freq: Status: Active Protocol: Activity Type Activity Date Activity User E-Sign Co-Sign Detail Recorded Client Recorded Date Recorded By Document 05/28/20 08:52 MW [id number] 05/28/20 09:18 MW Document 06/04/20 08:16 MW [id number] 06/04/20 08:20 MW 05/28/20 06/04/20 08:52 08:16 Wound Center Nurse 2 #1- RLE CIRCUMFERENTIAL -Time 08:53 08:16 -Correct Patient Yes Yes -Correct Side, Site, Position Yes Yes -Correct Procedure Yes Yes -Procedure Performed Yes Yes -Type of Procedure Debridement Debridement -Clinical Debridement Subcutaneous Subcutaneous -Tissue Removed Subcutaneous Subcutaneous -Post Debridement (cm) - Length 10.2 16.0 -Post Debridement (cm) - Width 35.0 5.0 -Post Debridement (cm) - Depth 0.2 0.1 -Total Square (Post) (cm) 357.00 80.00 -Area of Debridement (cm) - Length 10.2 16.0 -Area of Debridement (cm) - Width 35.0 5.0 -Total Square (Area) (cm) 357.00 80.00 -Tunneling No No -Undermining/Tunneling No No -Circular Undermining No No -Wound/Ulcer Outcome Not Healed Not Healed -Ulcer Cleansing Rinsed/ Rinsed/ Irrigated with Irrigated with Saline Saline -Foul Odor after Cleansing No No -Bioengineered Tissue No No -Bleeding Controlled with Pressure Pressure -Offloading No No -Treatment Response Procedure Procedure Tolerated Well Tolerated Well -Debridement - Subq, 1st 20sq cm Yes Yes -Debridement, SubQ, ea addt'l 20sq cm 17 or part thereof Pain Scale: 0-10 Numeric Is Patient Pain Free? Yes Yes WC - Nurse 3 - General Ulcer D/C NN Start: 05/28/20 08:12 Freq: Status: Active Protocol: Activity Type Activity Date Activity User E-Sign Co-Sign Detail Recorded Client Recorded Date Recorded By Document 05/28/20 09:31 [facility] [id number] 05/28/20 09:32 [facility] Document 06/04/20 08:31 KR [id number] 06/04/20 08:35 KR 05/28/20 06/04/20 09:31 08:31 Wound Care Nurse 3 #1- RLE CIRCUMFERENTIAL -Ulcer Cleansing Rinsed/ Rinsed/ Irrigated with Irrigated with Saline Saline -Foul Odor after Cleansing No No -Primary Dressing Applied NonAdherent Other Contact Layer -Other Dressing XEROFORM -Primary Dressing Covered/Secured with Dry Gauze & Dry Gauze, Roll Gauze, Secured with Secured with Tape Tape,Other -Other Covering ABD Right -Tubular Bandage Double Layer Double Layer -Size of Tubigrip Used Size F Size F -Size F ($) 1 2 Left -Tubular Bandage Double Layer -Size of Tubigrip Used Size F -Size F ($) 1 Treatment Response Procedure Tolerated Well Pain Scale: 0-10 Numeric Is Patient Pain Free? Yes WC - Visit Discharge Discharge Condition Stable Ambulatory Status Ambulatory Transportation Private Auto Type of Debridement: Excisional debridement Anesthesia Used: 5% Lidocaine Gel Depth: Down to and including healthy tissue Percentage of wound debrided: 100 Instrument Used: 7mm curette Tissue Removed: Slough Severity: Limited To Skin Breakdown Amount of bleeding with debridement: None Bleeding Controlled with: Compression and gauze Patient tolerated procedure well Assessment/Plan Lab work FANY CRP Active Problems Blister (nonthermal), right lower leg, initial encounter (Acute) Unspecified open wound, right lower leg, initial encounter (Acute) Obesity (BMI 30-39.9) (Acute) Diabetes type 2, uncontrolled (Acute) Hypertension (Chronic) Assessment: Open wounds right lower leg nonhealing nonsurgical. Blisters right lower leg now open. Diabetes type 2 uncontrolled. Hypertension. Vasculitis right lower leg Plan: Wash right leg with antibacterial soap. Apply Xeroform dressings to wounds. Cover with ABD and Armando. Double layer Tubigrip. Start linezolid 600 mg p.o. twice daily for 10 to 14 days. Start prednisone 20 mg 2 p.o. daily for 10 days. Follow-up in 1 week. Stop previous antibiotic therapy. Encouraged to lose weight stop drinking pop exercise eat healthy foods fruits vegetables lean meats and compression on her legs constantly.
[2020-06-05 14:47] LABS: ANTINUCLEAR ANTIBODIES DIRECT Negative (Negative)
[2020-06-11 08:22] VITALS: BP 167/84; PULSE 98; TEMP 36.1; BMI 48.3
--- NOTE | 2020-06-11 09:05 | PN.PCM_ITS ---
(1) Blister (nonthermal), right lower leg, initial encounter Status: Acute Code(s): S80.821A - Blister (nonthermal), right lower leg, initial encounter (2) Unspecified open wound, right lower leg, initial encounter Status: Acute Code(s): S81.801A - Unspecified open wound, right lower leg, initial encounter (3) Obesity (BMI 30-39.9) Status: Acute Code(s): E66.9 - Obesity, unspecified (4) Diabetes type 2, uncontrolled Status: Acute Code(s): E11.65 - Type 2 diabetes mellitus with hyperglycemia (5) Hypertension Status: Chronic Code(s): I10 - Essential (primary) hypertension (6) Vasculitic ulcer of right lower extremity, limited to breakdown of skin Status: Acute Code(s): L97.911 - Non-pressure chronic ulcer of unspecified part of right lower leg limited to breakdown of skin Type of Wound Date of Service: 06/11/20 Chief Complaint: Follow-up right lower leg blisters now open wounds circumferential and right lower leg History of Wound: 39-year-old white female that was referred to us from [facility]. 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 At the hospital she was admitted and they noticed then her right lower leg blistering and then open wound circumferential of leg. Ultrasound shows no blockages of the veins or DVTs. She was also admitted for new onset diabetes, septicemia, hypertensive crisis. Patient was sent home on Metformin and antibiotic therapy, but was still short of breath and ended up in [facility] in [place]. She was admitted for 8 more days for increasing shortness of breath and low pulse ox. She also had fevers of 103. And was given more antibiotic therapy there. She then saw her primary care that referred her here to the wound center. Patient is currently on Augmentin and doxycycline for her leg. The leg is circumferential and completely scabbed with yellow slough. Progress of Wound: Today the wound is healed. Still has circumferential purplish red macular rash around her leg possibly could be vasculitis. We will also get some lab work a CRP and an FANY and start her on prednisone 40 mg a day for 10 days. Also her cultures came back positive for 4 different staph infections on her lower leg we will start her on linezolid this week and see if that helps. She is completed all therapies with improvement. CRP was extremely high at 27 she will need a cardiac work-up and possibly work-up for vasculitis with a decision support analyst and she needs to concentrate on her diabetes and weight loss. Labs and notes will be sent to the family doctor for further follow-up.. PAtient will be discharged from the wound center and followed up as needed - Physical Exam Vital Signs Temp Pulse Resp BP 97.0 F L 98 16 167/84 H 06/11/20 08:22 06/11/20 08:22 06/04/20 08:01 06/11/20 08:22 General: Oriented x3, Cooperative, Well developed HEENT: Atraumatic, PERRLA Oral: Moist Mucosa Neck: Supple, No JVD Lungs: Clear to auscultation, Normal air movement Cardiovascular: Regular rate, Regular Rhythm Abdomen: Bowel Sounds Present, Soft, Non Tender, No Hepato-splenomegaly Extremities: No clubbing, Edema - Macular erythematous rash circumferential on right lower leg no open wounds Wound Measurements and Assessment WC - Nurse 1 - General Ulcer Measurement Start: 05/28/20 08:12 Freq: Status: Discharge Protocol: Activity Type Activity Date Activity User E-Sign Co-Sign Detail Recorded Client Recorded Date Recorded By Document 06/11/20 08:22 KR [id number] 06/11/20 08:24 KR Edit Status 06/11/20 09:02 EMMIE WALKER Active=>Discharge [id number] 06/11/20 09:02 EMMIE WALKER 06/11/20 08:22 Wound Center Nurse 1 [Ulcer Assessment] #1- RLE CIRCUMFERENTIAL -Current Size (cm) - Length 15 -Current Size (cm) - Width 24 -Current Size (cm) - Depth 0.1 -Total Square Cm 360 -Exudate Amt None Present -Wound Margin Distinct, Outline Attached -Granulation Amt None Present (0 %) -Necrosis Amt None Present (0 %) -Texture (Fawn-wound Skin Appearance) Assessed, Scarring -Moisture (Fawn-wound Skin Appearance No Abnormality, ) Assessed -Color (Fawn-wound Skin Appearance) Assessed, Hemosiderin Staining -Temperature (Fawn-wound Skin No Abnormality Appearance) (Pt Warm) -Tenderness on Palpation (Fawn-wound No Skin Appearance) -Ulcer Cleansing Rinsed/ Irrigated with Saline -Foul Odor after Cleansing No -Anesthetic Used 4% Lidocaine Solution [Edema Assessment] -Right Calf (cm) 44 -Right Ankle (cm) 27 WC - Nurse 2 - General Ulcer CM Notes Start: 05/28/20 08:12 Freq: Status: Discharge Protocol: Activity Type Activity Date Activity User E-Sign Co-Sign Detail Recorded Client Recorded Date Recorded By Document 06/11/20 08:28 MW [id number] 06/11/20 08:31 MW Edit Status 06/11/20 09:02 BKG DAEMON Active=>Discharge [facility]-[id number] 06/11/20 09:02 BKG DAEMON 06/11/20 08:28 Wound Center Nurse 2 [Procedure/Treatment] #1- RLE CIRCUMFERENTIAL -Time 08:29 -Correct Patient Yes -Correct Side, Site, Position Yes -Correct Procedure Yes -Procedure Performed No -Post Debridement (cm) - Length 0 -Post Debridement (cm) - Width 0 -Post Debridement (cm) - Depth 0 -Total Square (Post) (cm) 0 -Wound/Ulcer Outcome Healed- Epithelialized [See Physician Procedure note for Specifics] Pain Scale: 0-10 Numeric [Pain] -Is Patient Pain Free? Yes - Nurse 3 - General Ulcer D/C NN Start: 05/28/20 08:12 Freq: Status: Discharge Protocol: Activity Type Activity Date Activity User E-Sign Co-Sign Detail Recorded Client Recorded Date Recorded By Edit Status 06/11/20 09:02 BKG DAEMON Active=>Discharge [email or web address]-[email or web address] 06/11/20 09:02 BKG DAEMON Musculoskeletal: No Tenderness to Palpation of Joints or Extremities Lymphatic: No Cervical, Supraclavicular, or Inguinal Adenopathy Neurological: Cranial nerves II-XII grossly intact, Neuro grossly intact Psych/Mental Status: Normal Affect, Appropriate Debridement Note Post-Debridement Measurements/Treatment WC - Nurse 2 - General Ulcer CM Notes Start: 05/28/20 08:12 Freq: Status: Discharge Protocol: Activity Type Activity Date Activity User E-Sign Co-Sign Detail Recorded Client Recorded Date Recorded By Document 05/28/20 08:52 MW [id number] 05/28/20 09:18 MW Document 06/04/20 08:16 MW [id number] 06/04/20 08:20 MW Document 06/11/20 08:28 MW [id number] 06/11/20 08:31 MW 05/28/20 06/04/20 06/11/20 08:52 08:16 08:28 Wound Center Nurse 2 #1- RLE CIRCUMFERENTIAL -Time 08:53 08:16 08:29 -Correct Patient Yes Yes Yes -Correct Side, Site, Position Yes Yes Yes -Correct Procedure Yes Yes Yes -Procedure Performed Yes Yes No -Type of Procedure Debridement Debridement -Clinical Debridement Subcutaneous Subcutaneous -Tissue Removed Subcutaneous Subcutaneous -Post Debridement (cm) - Length 10.2 16.0 0 -Post Debridement (cm) - Width 35.0 5.0 0 -Post Debridement (cm) - Depth 0.2 0.1 0 -Total Square (Post) (cm) 357.00 80.00 0 -Area of Debridement (cm) - Length 10.2 16.0 -Area of Debridement (cm) - Width 35.0 5.0 -Total Square (Area) (cm) 357.00 80.00 -Tunneling No No -Undermining/Tunneling No No -Circular Undermining No No -Wound/Ulcer Outcome Not Healed Not Healed Healed- Epithelialized -Ulcer Cleansing Rinsed/ Rinsed/ Irrigated with Irrigated with Saline Saline -Foul Odor after Cleansing No No -Bioengineered Tissue No No -Bleeding Controlled with Pressure Pressure -Offloading No No -Treatment Response Procedure Procedure Tolerated Well Tolerated Well -Debridement - Subq, 1st 20sq cm Yes Yes -Debridement, SubQ, ea addt'l 20sq cm 17 3 or part thereof Pain Scale: 0-10 Numeric Is Patient Pain Free? Yes Yes Yes WC - Nurse 3 - General Ulcer D/C NN Start: 05/28/20 08:12 Freq: Status: Discharge Protocol: Activity Type Activity Date Activity User E-Sign Co-Sign Detail Recorded Client Recorded Date Recorded By Document 05/28/20 09:31 BMF [id number] 05/28/20 09:32 BMF Document 06/04/20 08:31 KR [id number] 06/04/20 08:35 KR 05/28/20 06/04/20 09:31 08:31 Wound Care Nurse 3 #1- RLE CIRCUMFERENTIAL -Ulcer Cleansing Rinsed/ Rinsed/ Irrigated with Irrigated with Saline Saline -Foul Odor after Cleansing No No -Primary Dressing Applied NonAdherent Other Contact Layer -Other Dressing XEROFORM -Primary Dressing Covered/Secured with Dry Gauze & Dry Gauze, Roll Gauze, Secured with Secured with Tape Tape,Other -Other Covering ABD Right -Tubular Bandage Double Layer Double Layer -Size of Tubigrip Used Size F Size F -Size F ($) 1 2 Left -Tubular Bandage Double Layer -Size of Tubigrip Used Size F -Size F ($) 1 Treatment Response Procedure Tolerated Well Pain Scale: 0-10 Numeric Is Patient Pain Free? Yes WC - Visit Discharge Discharge Condition Stable Ambulatory Status Ambulatory Transportation Private Auto No debridement was completed today Assessment/Plan Active Problems Blister (nonthermal), right lower leg, initial encounter (Acute) Unspecified open wound, right lower leg, initial encounter (Acute) Obesity (BMI 30-39.9) (Acute) Diabetes type 2, uncontrolled (Acute) Hypertension (Chronic) Vasculitic ulcer of right lower extremity, limited to breakdown of skin (Acute) Assessment: Open wounds right lower leg nonhealing nonsurgical. Blisters right lower leg now open. Diabetes type 2 uncontrolled. Hypertension. Vasculitis right lower leg Plan: Discharge from the wound center. Needs to continue wearing compression stockings of 20 to 30 mmHg when at work. Return to work slip given no restrictions. Patient needs to advocate for herself and get a full work-up with her primary care doctor and computer operations manager possibly.
== END 2020-06-11 09:02 | disposition home or self-care (01) ==
LOC: WC 08:00
PROVIDERS: PCP Internal Medicine; Referring Provider Nurse Practitioner Primary Care; Visit Provider Nurse Practitioner
DX: E11.622 Type 2 diabetes mellitus with other skin ulcer (principal); S80.821A Blister (nonthermal), right lower leg, initial encounter; X58.XXXA Exposure to other specified factors, initial encounter; E66.9 Obesity, unspecified; E11.65 Type 2 diabetes mellitus with hyperglycemia; I10 Essential (primary) hypertension; Z68.42 Body mass index [BMI] 45.0-49.9, adult; Z79.84 Long term (current) use of oral hypoglycemic drugs; Z79.899 Other long term (current) drug therapy; L97.811 Non-pressure chronic ulcer of other part of right lower leg limited to breakdown of skin
CPT/HCPCS: 11042; 11045; 36415; 86038; 86140; 86225; 86235; 87070; 87075; 87077; 87186; 87205; 99213; G0463

== ENCOUNTER 2020-12-12 07:48 | Emergency (ER) | payer OTHER, BC, SELFPAY ==
[2020-12-12 07:49] VITALS: BP 111/76; PULSE 80; RESP 16; TEMP 35.8; O2SAT 100; BMI 44.4
--- NOTE | 2020-12-12 08:06 | EDS_ITS ---
HPI History of Present Illness Chief Complaint: Back Informant: patient Onset/Context/Timing Onset: Today Injury: lifting and bending Quality: Aching and Throbbing Location: Thoracic, Lumbar and Buttock Current Severity: Moderate Maximum Severity: Moderate Narrative Narrative: Patient presents secondary to back pain. 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 She felt a popping sensation in her mid back. She states she had diff iculty standing up and now has tightening pain in her back and down into her right buttock and proximal lower leg. Patient denies history of back problems, surgery, or injections. No direct trauma or fall. [facility] Medical History Diabetes type 2, uncontrolled Hypertension Home Medications albuterol sulfate [Ventolin HFA] 1 - 2 puff INHALATION Q6H PRN PRN 01/17/15 [History Last Taken Unknown] albuterol sulfate 2.5 mg INHALATION Q4H PRN PRN 01/02/20 [History Last Taken Unknown] cetirizine 10 mg PO DAILY #14 cap 01/02/20 [Rx Last Taken Unknown] epinephrine 0.3 mg IM X1 #2 syringe 01/02/20 [Rx Last Taken Unknown] amoxicillin 250 mg PO BID 05/28/20 [History Last Taken Unknown] doxycycline monohydrate 100 mg PO BID 05/28/20 [History Last Taken Unknown] lisinopril 20 mg PO DAILY 05/28/20 [History Last Taken Unknown] cyclobenzaprine 10 mg PO BID PRN #10 tab 12/12/20 [Rx Last Taken Unknown] hydrocodone-acetaminophen 1 tab PO Q6H PRN 3 Days #10 tab 12/12/20 [Rx Last Taken Unknown] naproxen [Naprosyn] 500 mg PO BID PRN #20 tab 12/12/20 [Rx Last Taken Unknown] Allergy/AdvReac Type Severity Reaction Status Date / Time bee venom protein (honey bee) Allergy Anaphylaxis Verified 12/12/20 07:49 codeine Allergy Rash Verified 12/12/20 07:49 latex Allergy Rash Verified 12/12/20 07:49 metoclopramide HCl Allergy Rash Verified 12/12/20 07:49 [From [facility]] Social History Smoking Status: Never smoker ROS ROS ED Constitutional Constitutional ED: Denies chills or fever(s) Eyes Eyes: Denies change in vision ENT ENT ED: Denies sore throat Cardiovascular Cardiovascular: Denies chest pain Respiratory/Chest Respiratory/Chest: Denies cough or dyspnea Gastrointestinal Gastrointestinal: Denies abdominal pain, diarrhea, nausea or vomiting Genitourinary Genitourinary ED: Denies dysuria Musculoskeletal Musculoskeletal: Reports back pain Integumentary Denies rash Neurologic Neurologic: Reports headache(s); Denies paresthesias or weakness Psychiatric Psychiatric: Denies anxiety or depression Allergic/Immunologic Allergic/Immunologic ED: Denies urticaria EXAM Physical Exam Const Vital Signs: 12/12/20 07:49 Temperature 96.4 F L Temperature Source Temporal Pulse Rate 80 Respiratory Rate 16 Blood Pressure 111/76 Blood Pressure Mean 87 Pulse Ox 100 Oxygen Delivery Method Room Air Positive well nourished and well developed General Appearance ED: well developed HEENT Reports normocephalic and head/scalp atraumatic Eyes PERRL and EOMs intact bilaterally Neck supple Chest Wall inspection of chest normal and palpation of chest normal Resp normal respiratory effort and clear to auscultation bilaterally Cardio regular rate and regular rhythm GI Palpation: soft Back/Spine no CVA tenderness Back/Spine Narrative: Tenderness palpation in the lower thoracic and lumbar midline and right paraspinal muscles. No overlying skin change. Reproducible tenderness at the sciatic notch on the right. Good strength and sensation with strong distal pulses. Extremity normal to inspection Neuro oriented x3 and no sensory deficits noted Sensorium / Orientation: alert Motor Exam: strength 5/5 throughout Psych mental status grossly normal Skin no rashes or lesions noted MDM MDM MDM Narrative Medical decision making narrative: Patient had no direct trauma to her back. Do not feel that imaging will be beneficial. She will be given work restrictions along with analgesics and muscle relaxers. Treatment and Re-Evaluation Comments:: Patient will follow up with corporate care. Discharge Plan Triage Chief Complaint: Back ED Provider: Anastasia Mcgovern Dx/Rx/DC Orders Clinical Impression: Back strain Instructions: ED Back Spasm, No Trauma, ED Back Sprain/Strain Prescriptions: New naproxen [Naprosyn] 500 mg tablet 500 mg PO BID PRN (Reason: pain) Qty: 20 RF: 0 cyclobenzaprine 10 mg tablet 10 mg PO BID PRN (Reason: muscle spasm) Qty: 10 RF: 0 hydrocodone-acetaminophen 5-325 mg tablet 1 tab PO Q6H PRN (Reason: pain) 3 Days Qty: 10 RF: 0 No Action albuterol sulfate [Ventolin HFA] 1 INHALER inhaler 1 - 2 puff inhalation Q6H PRN PRN (Reason: Wheezing) RF: 0 albuterol sulfate 2.5 MG/3 ML solution for nebulization 2.5 mg inhalation Q4H PRN PRN (Reason: Wheezing) RF: 0 cetirizine 10 MG capsule 10 mg PO DAILY Qty: 14 RF: 0 epinephrine 0.3 MG syringe 0.3 mg IM X1 Qty: 2 RF: 0 doxycycline monohydrate 100 MG capsule 100 mg PO BID RF: 0 amoxicillin 250 MG capsule 250 mg PO BID RF: 0 lisinopril 5 MG tablet 20 mg PO DAILY RF: 0 Stand Alone Forms: Work Status Form Primary Care Provider: Marta Hernandez Referrals: Corporate,Care [GROUP OF PHYSICIANS] - 3-5 Days Marta Hernandez MD [Primary Care Provider] - Disposition Disposition: Home, Self Care
[2020-12-12] MEDS: Naproxen 500 MG Tablet PO (08:45)
== END 2020-12-12 08:46 | disposition home or self-care (01) ==
PROVIDERS: Emergency Provider Emergency Medicine; PCP Internal Medicine
DX: S39.012A Strain of muscle, fascia and tendon of lower back, initial encounter (principal); X58.XXXA Exposure to other specified factors, initial encounter; Y93.89 Activity, other specified; Y92.9 Unspecified place or not applicable; Y99.0 Civilian activity done for income or pay; I10 Essential (primary) hypertension; Z79.899 Other long term (current) drug therapy
CPT/HCPCS: 99282

== ENCOUNTER 2020-12-17 09:17 | Emergency (ER) | payer OTHER, BC, SELFPAY ==
[2020-12-17 09:17] VITALS: BP 101/55; PULSE 76; RESP 16; TEMP 36.4; BMI 44.4
--- NOTE | 2020-12-17 09:28 | EDS_ITS ---
HPI History of Present Illness Chief Complaint: Back Informant: patient Narrative Narrative: 40-year-old female presented to the emergency department with low back pain. 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 She states she was seen in the emergency room and followed up with a now clinic. They are supposed to start her on physical therapy and give her work restrictions. She notes pain just with walking. She notes pain now seems to be radiating into both legs. No bowel or bladder dysfunction. No loss of sensation or foot drop. No fevers. No recent back injections or IVDA use. [facility] Medical History Asthma Bloodstream infection Chronic neck and back pain Diabetes type 2, uncontrolled History of colon cancer History of COVID-19 History of urinary cancer Hypertension Home Medications albuterol sulfate 2.5 mg INHALATION Q4H PRN PRN 01/02/20 [History Last Taken Unknown] cyclobenzaprine 10 mg PO BID PRN #10 tab 12/12/20 [Rx Last Taken Unknown] hydrocodone-acetaminophen 1 tab PO Q6H PRN 3 Days #10 tab 12/12/20 [Rx Last Taken Unknown] naproxen [Naprosyn] 500 mg PO BID PRN #20 tab 12/12/20 [Rx Last Taken Unknown] dulaglutide 1.5 mg/0.5 mL subcutaneous pen injector 3 mg SUBCUT ml 12/16/20 [History Last Taken Unknown] metformin 500 mg tablet 500 mg PO tab 12/16/20 [History Last Taken Unknown] methylprednisolone 4 mg tablets in a dose pack 4 mg PO PER PKG DIR 5 Days #21 tab 12/16/20 [Rx Last Taken Unknown] diazepam 5 mg PO Q8 PRN #15 tab 12/17/20 [Rx Last Taken Unknown] ibuprofen 600 mg PO Q8H PRN PRN #20 tablet 12/17/20 [Rx Last Taken Unknown] oxycodone-acetaminophen 1 tab PO Q6H PRN PRN 3 Days #12 tablet 12/17/20 [Rx Last Taken Unknown] Allergy/AdvReac Type Severity Reaction Status Date / Time bee venom protein (honey bee) Allergy Anaphylaxis Verified 12/17/20 09:20 codeine Allergy Rash Verified 12/17/20 09:20 latex Allergy Rash Verified 12/17/20 09:20 metoclopramide HCl Allergy Rash Verified 12/17/20 09:20 [From Reglan] Family History (Updated 12/16/20 @ 13:16 by Linh Ferraro) Other Colon cancer FH: urinary cancer Social History Smoking Status: Never smoker alcohol intake: never ROS ROS ED Constitutional Constitutional ED: Denies chills or weight loss Eyes Eyes: Denies change in vision or diplopia ENT ENT ED: Denies ear pain, rhinorrhea or sore throat Cardiovascular Cardiovascular: Denies chest pain, orthopnea, palpitations or racing heartbeat Respiratory/Chest Respiratory/Chest: Denies cough, dyspnea or orthopnea Gastrointestinal Gastrointestinal: Denies abdominal pain, diarrhea, nausea or vomiting Genitourinary Genitourinary ED: Denies dysuria, hematuria or urinary frequency Musculoskeletal Musculoskeletal: Reports back pain; Denies arthralgias or myalgias Integumentary Denies abscess or rash Neurologic Neurologic: Denies headache(s) or weakness Psychiatric Psychiatric: Denies anxiety, depression, suicidal ideation or suicidal thoughts Endocrine Endocrinology: Denies polydipsia, polyphagia or polyuria Allergic/Immunologic Allergic/Immunologic ED: Denies mouth swelling, tongue swelling or urticaria EXAM Physical Exam Const Vital Signs: 12/17/20 09:17 Temperature 97.6 F L Temperature Source Temporal Pulse Rate 76 Respiratory Rate 16 Blood Pressure 101/55 L Blood Pressure Mean 70 Positive well nourished and well developed General Appearance ED: well developed HEENT Reports normocephalic, head/scalp atraumatic and moist mucous membranes Eyes PERRL and EOMs intact bilaterally Neck no lymphadenopathy, supple and no JVD Resp normal respiratory effort and clear to auscultation bilaterally Cardio regular rate, regular rhythm and no murmurs GI normal to inspection, nondistended, normoactive bowel sounds and non-tender Palpation: soft Back/Spine no CVA tenderness and normal ROM Back/Spine Narrative: Tender to palpation over the lower lumbar spine and paraspinal musculature. Patient is able to sit up readily on the side of the b ed. Extremity normal to inspection General Extremety ED: Negative for edema General Extremity: Negative for edema Neuro oriented x3 and CN's II-XII intact bilaterally Neuro Narrative: Neurovascular intact with no deficits. Sensorium / Orientation: alert Motor Exam: strength 5/5 throughout Deep Tendon Reflexes: Rt Patellar (L4): 2+, Lt Patellar (L4): 2+, Rt Ankle (S1): 2+ and Lt Ankle (S1): 2+ Deep Tendon Reflexes Back: Rt Patellar (L4): 2+, Lt Patellar (L4): 2+, Rt Ankle (S1): 2+ and Lt Ankle (S1): 2+ Psych mental status grossly normal Mood & Affect: Negative for depressed or tearful Skin no rashes or lesions noted and no wounds MDM MDM MDM Narrative Medical decision making narrative: I can write for the patient to have some additional pain medication. She needs to be following up with Workmen's Comp. Discharge Plan Triage Chief Complaint: Back ED Provider: Carmelo Lucas Dx/Rx/DC Orders Clinical Impression: Sciatica Instructions: ED Sciatica Prescriptions: New ibuprofen 600 MG tablet 600 mg PO Q8H PRN PRN (Reason: pain) Qty: 20 RF: 0 oxycodone-acetaminophen [oxycodone-acetaminophen] 1 TABLET tablet 1 tab PO Q6H PRN PRN (Reason: Pain) 3 Days Qty: 12 RF: 0 diazepam [diazepam] 5 MG tablet 5 mg PO Q8 PRN (Reason: Muscle Spasm) Qty: 15 RF: 0 No Action Trulicity 1.5 mg/0.5 mL pen injector 3 mg subcut RF: 0 metformin 500 mg tablet 500 mg PO RF: 0 methylprednisolone [Medrol (Anibal)] 4 mg tablets,dose pack 4 mg PO PER PKG DIR 5 Days Qty: 21 RF: 0 albuterol sulfate 2.5 MG/3 ML solution for nebulization 2.5 mg inhalation Q4H PRN PRN (Reason: Wheezing) RF: 0 naproxen [Naprosyn] 500 mg tablet 500 mg PO BID PRN (Reason: pain) Qty: 20 RF: 0 cyclobenzaprine 10 mg tablet 10 mg PO BID PRN (Reason: muscle spasm) Qty: 10 RF: 0 hydrocodone-acetaminophen 5-325 mg tablet 1 tab PO Q6H PRN (Reason: pain) 3 Days Qty: 10 RF: 0 Primary Care Provider: Marta Hernandez Referrals: Marta Hernandez MD [Primary Care Provider] - [facility] [NON-STAFF] - As soon as possible Disposition Disposition: Home, Self Care
[2020-12-17 09:57] VITALS: PULSE 82; RESP 17; O2SAT 97
== END 2020-12-17 10:15 | disposition home or self-care (01) ==
LOC: ED 10:09
PROVIDERS: Emergency Provider Emergency Medicine; PCP Internal Medicine
DX: M54.40 Lumbago with sciatica, unspecified side (principal); G89.29 Other chronic pain; I10 Essential (primary) hypertension; Z79.899 Other long term (current) drug therapy; Z86.16 Personal history of COVID-19
CPT/HCPCS: 99282

== ENCOUNTER 2021-09-23 18:49 | Emergency (ER) | payer BC, SELFPAY ==
[2021-09-23 18:50] VITALS: BP 129/68; PULSE 81; RESP 15; TEMP 36.4; O2SAT 98; BMI 47.0
--- NOTE | 2021-09-23 19:54 | EDS_ITS ---
HPI History of Present Illness Chief Complaint: Dental Narrative Narrative: 40-year-old female presenting with dental pain on the left lower mandible. She states this started hurting a couple of weeks ago was treated by her dentist. She was on penicillin for this. This started to improve and now she is noting more pain. She denies any trauma. She notes that she had a fever and chills over the last 3 days. Her T-max is 102. She denies cough or shortness of breath. She denies abdominal pain, nausea, vomiting. She denies urinary complaints or vaginal complaints. No diarrhea or constipation. She works at the [employer] and states that she has no known sick contacts. [facility] Medical History Asthma Bloodstream infection Chronic neck and back pain Diabetes type 2, uncontrolled History of colon cancer History of COVID-19 History of urinary cancer Hypertension Home Medications albuterol sulfate 2.5 mg inhalation Q4H PRN PRN Wheezing 01/02/20 [History Last Taken Unknown] cyclobenzaprine 10 mg tablet 10 mg PO BID PRN muscle spasm #10 tabs 12/12/20 [Rx Last Taken Unknown] hydrocodone-acetaminophen 5-325mg 5mg-325mg 1 tab PO Q6H PRN pain 3 days #10 tabs 12/12/20 [Rx Last Taken Unknown] naproxen 500 mg tablet (Naprosyn) 500 mg PO BID PRN pain #20 tabs 12/12/20 [Rx Last Taken Unknown] dulaglutide 1.5 mg/0.5 mL subcutaneous pen injector 3 mg subcut 12/16/20 [History Last Taken Unknown] metformin 500 mg tablet 500 mg PO 12/16/20 [History Last Taken Unknown] diazepam 5 mg tablet 5 mg PO Q8 PRN Muscle Spasm #15 tabs 12/17/20 [Rx Last Taken Unknown] ibuprofen 600 mg tablet 600 mg PO Q8H PRN PRN pain #20 TABLETS 12/17/20 [Rx Last Taken Unknown] oxycodone-acetaminophen 5 mg-325 mg tablet 1 tab PO Q6H PRN PRN Pain 3 days #12 TABLETS 12/17/20 [Rx Last Taken Unknown] amoxicillin 875 mg-potassium clavulanate 125 mg tablet 1 tab PO BID #20 tabs 09/23/21 [Rx Last Taken Unknown] Allergy/AdvReac Type Severity Reaction Status Date / Time bee venom protein (honey bee) Allergy Anaphylaxis Verified 09/23/21 18:50 codeine Allergy Rash Verified 09/23/21 18:50 latex Allergy Rash Verified 09/23/21 18:50 metoclopramide HCl Allergy Rash Verified 09/23/21 18:50 [[facility]] Family History Other Colon cancer FH: urinary cancer Social History Smoking Status: Never smoker alcohol intake: never ROS ROS ED Constitutional Constitutional ED: Reports chills and fever(s) Eyes Eyes: Denies change in vision ENT ENT ED: Reports other Details: Dental pain ; Denies rhinorrhea or sore throat Cardiovascular Cardiovascular: Denies chest pain or palpitations Respiratory/Chest Respiratory/Chest: Denies cough or dyspnea Gastrointestinal Gastrointestinal: Denies abdominal pain, constipation, diarrhea, melena, nausea or vomiting Genitourinary Genitourinary ED: Denies dysuria or hematuria Musculoskeletal Musculoskeletal: Reports myalgias; Denies arthralgias Integumentary Denies abscess Neurologic Neurologic: Reports headache(s); Denies paresthesias or weakness EXAM Physical Exam Const Vital Signs: 09/23/21 18:50 09/23/21 21:51 Temperature 97.6 F L Temperature Source Temporal Pulse Rate 81 81 Respiratory Rate 15 15 Blood Pressure 129/68 H 129/68 H Blood Pressure Mean 88 Pulse Ox 98 98 Oxygen Delivery Method Room Air Positive well nourished General Appearance ED: NAD HEENT HEENT Narrative: Dental percussion tenderness over tooth #20. There is focal decay here. No sushil abscess is noted. Buccal mucosa normal. Tongue not swollen. No sublingual edema. No submandibular fullness Negative for trauma Mouth ED: Yes oral and palatal mucosa abnormal Mouth: oral and palatal mucosa abnormal Eyes PERRL Neck no lymphadenopathy Lymph Lymphatic: no lymphadenopathy noted Chest Wall inspection of chest normal Resp normal respiratory effort and clear to auscultation bilaterally Cardio regular rate and regular rhythm GI normal to inspection, nondistended, normoactive bowel sounds Neuro oriented x3 and CN's II-XII intact bilaterally Sensorium / Orientation: alert Psych mental status grossly normal Skin no rashes or lesions noted MDM MDM MDM Narrative Medical decision making narrative: Patient has focal dental decay at tooth #20. This is tender to palpation but there is minimal swelling here. There is no facial swelling. Patient complaining of fever, chills, body aches. I will test her for COVID and influenza. She was given Tylenol. She states she does not want a thing stronger than this. Rapid COVID and influenza are negative. Vital signs are stable and she is afebrile. I do not believe she needs blood work or imaging. He has follow-up with her dentist already scheduled for September. She is given Augmentin. She is to alternate Tylenol ibuprofen. Return precautions discussed. Impression: 1. Dental pain 2. Dental abscess Discharge Plan Triage Chief Complaint: Dental ED Provider: Isidro Beckford Dx/Rx/DC Orders Instructions: ED Dental Pain, ED Dental Cavity Prescriptions: New amoxicillin-pot clavulanate 875-125 mg tablet 1 tab PO BID Qty: 20 0RF No Action Trulicity 1.5 mg/0.5 mL pen injector 3 mg subcut metformin 500 mg tablet 500 mg PO albuterol sulfate 2.5 MG/3 ML solution for nebulization 2.5 mg inhalation Q4H PRN PRN (Reason: Wheezing) naproxen [Naprosyn] 500 mg tablet 500 mg PO BID PRN (Reason: pain) Qty: 20 0RF cyclobenzaprine 10 mg tablet 10 mg PO BID PRN (Reason: muscle spasm) Qty: 10 0RF hydrocodone-acetaminophen 5-325 mg tablet 1 tab PO Q6H PRN (Reason: pain) 3 Days Qty: 10 0RF ibuprofen 600 MG tablet 600 mg PO Q8H PRN PRN (Reason: pain) Qty: 20 0RF oxycodone-acetaminophen [oxycodone-acetaminophen] 1 TABLET tablet 1 tab PO Q6H PRN PRN (Reason: Pain) 3 Days Qty: 12 0RF diazepam [diazepam] 5 MG tablet 5 mg PO Q8 PRN (Reason: Muscle Spasm) Qty: 15 0RF Primary Care Provider: Marta Hernandez Referrals: Marta Hernandez MD [Primary Care Provider] - Disposition Disposition: Home, Self Care Discharge Date/Time: 09/23/21 21:52
[2021-09-23] MEDS: Amox/Clavulanate 875 MG Tablet PO (20:01)
[2021-09-23] MEDS: Acetaminophen 500 MG Tablet 1000 MG PO (20:01)
[2021-09-23 21:51] VITALS: BP 129/68; PULSE 81; RESP 15; O2SAT 98
== END 2021-09-23 21:52 | disposition home or self-care (01) ==
PROVIDERS: Emergency Provider Student in an Organized Health Care Education/Training Program; PCP Internal Medicine; Visit Provider Student in an Organized Health Care Education/Training Program
DX: K04.7 Periapical abscess without sinus (principal); E11.9 Type 2 diabetes mellitus without complications; I10 Essential (primary) hypertension; Z79.84 Long term (current) use of oral hypoglycemic drugs; Z79.899 Other long term (current) drug therapy; Z86.16 Personal history of COVID-19
CPT/HCPCS: 87428; 99283

== ENCOUNTER 2022-04-10 04:08 | Emergency (ER) | payer BC, SELFPAY ==
[2022-04-10 04:09] VITALS: BP 138/65; PULSE 77; RESP 18; TEMP 35.8; O2SAT 99; BMI 48.5
--- NOTE | 2022-04-10 04:51 | EDS_ITS ---
HPI History of Present Illness Chief Complaint: Back Narrative Narrative: Patient is a 41-year-old female with past medical history of morbid obesity as well as urinary and colon cancer. She states that she does a lot of lifting pulling and pushing at work. She denies any sudden onset of pain or direct trauma but states that she has noticed that after work she has increased pain mainly along the right side of her back that worsens with motion. She denies any hematuria or dysuria. She denies any loss of bowel or bladder control or IV drug use. She states however she is been trying [id number] medications with minimal symptom improvement and secondary to this comes in for evaluation [facility] Medical History Asthma Bloodstream infection Chronic neck and back pain Diabetes type 2, uncontrolled History of colon cancer History of COVID-19 History of urinary cancer Hypertension Home Medications albuterol sulfate 2.5 mg/3 mL (0.083 %) solution for nebulization 2.5 mg inhalation Q4H PRN PRN Wheezing 01/02/20 [History Last Taken Unknown] cyclobenzaprine 10 mg tablet 10 mg PO BID PRN muscle spasm #10 tabs 12/12/20 [Rx Last Taken Unknown] hydrocodone-acetaminophen 5-325mg 5mg-325mg 1 tab PO Q6H PRN pain 3 days #10 tabs 12/12/20 [Rx Last Taken Unknown] naproxen 500 mg tablet (Naprosyn) 500 mg PO BID PRN pain #20 tabs 12/12/20 [Rx Last Taken Unknown] dulaglutide 1.5 mg/0.5 mL subcutaneous pen injector 3 mg subcut 12/16/20 [History Last Taken Unknown] metformin 500 mg tablet 500 mg PO 12/16/20 [History Last Taken Unknown] diazepam 5 mg tablet 5 mg PO Q8 PRN Muscle Spasm #15 tabs 12/17/20 [Rx Last Taken Unknown] ibuprofen 600 mg tablet 600 mg PO Q8H PRN PRN pain #20 TABLETS 12/17/20 [Rx Last Taken Unknown] oxycodone-acetaminophen 5 mg-325 mg tablet 1 tab PO Q6H PRN PRN Pain 3 days #12 TABLETS 12/17/20 [Rx Last Taken Unknown] amoxicillin 875 mg-potassium clavulanate 125 mg tablet 1 tab PO BID #20 tabs 09/23/21 [Rx Last Taken Unknown] methocarbamol 500 mg tablet 1,000 mg PO 4X/DAY PRN PRN Muscle pain/spasm #56 tabs 04/10/22 [Rx Last Taken Unknown] oxycodone-acetaminophen 5 mg-325 mg tablet (Percocet) 1 tab PO Q6H PRN pain 3 days #12 tabs 04/10/22 [Rx Last Taken Unknown] Allergy/AdvReac Type Severity Reaction Status Date / Time bee venom protein (honey bee) Allergy Anaphylaxis Verified 04/10/22 04:12 codeine Allergy Rash Verified 04/10/22 04:12 latex Allergy Rash Verified 04/10/22 04:12 metoclopramide HCl Allergy Rash Verified 04/10/22 04:12 [From [facility]] Family History Other Colon cancer FH: urinary cancer Social History Smoking Status: Never smoker alcohol intake: never ROS ROS ED Constitutional Constitutional ED: Denies chills or fever(s) ENT ENT ED: Denies sore throat Cardiovascular Cardiovascular: Denies chest pain Respiratory/Chest Respiratory/Chest: Denies cough or dyspnea Gastrointestinal Gastrointestinal: Denies abdominal pain, diarrhea, nausea or vomiting Genitourinary Genitourinary ED: Denies dysuria, hematuria or urinary frequency Musculoskeletal Musculoskeletal: Reports back pain; Denies myalgias Integumentary Denies rash Neurologic Neurologic: Denies headache(s) or paresthesias Hematologic/Lymphatic Hematologic/Lymphatic: Denies easy bleeding or easy bruising EXAM Physical Exam Const Vital Signs: 04/10/22 04:09 Temperature 96.4 F L Temperature Source Temporal Pulse Rate 77 Respiratory Rate 18 Blood Pressure 138/65 H Blood Pressure Mean 89 Pulse Ox 99 Oxygen Delivery Method Room Air Positive well nourished, well developed and obese General Appearance ED: well developed Nutritional Appearance: obese Eyes PERRL and EOMs intact bilaterally Neck supple Resp normal respiratory effort and clear to auscultation bilaterally Cardio regular rate and regular rhythm Rate: other Other Details: Radial pulses are plus 2 out of 4 bilaterally are equal and symmetric Back/Spine Back/Spine Narrative: No bony deformity or step-off of the cervical thoracic or lumbar spine no midline pain on palpation. There is pain on palpation along the right sacroiliac joint. There is also mild muscle tension and spasm located along the right paralumbar muscle belly region that worsens with extension and rotation. No saddle anesthesia. Negative straight leg raise. No clonus or Babinski. Patellar reflexes are plus 1 out of 4 bilaterally. Extremity normal to inspection Neuro oriented x3 and CN's II-XII intact bilaterally Sensorium / Orientation: alert Psych mental status grossly normal Skin no rashes or lesions noted Skin Narrative: No overlying soft tissue changes to suggest trauma or infection MDM MDM MDM Narrative Medical decision making narrative: Patient presented to the ER in no acute distress with stable vitals and no risk factors or physical exam findings concerning for cauda equina or epidural abscess. There is no midline pain with palpation and no report or signs of trauma so I felt no need for x-ray. She does have muscle tension and spasm along the right paralumbar muscle belly region that worsens with motion and no signs of neuro claudication by exam. Therefore this time I feel the symptoms are most likely related to her duties at work and are exacerbated by her obesity . Therefore do not feel there is need for x-ray or CT scans or blood. Patient will be given symptomatic medication and is otherwise safe for discharge Discharge Plan Triage Chief Complaint: Back ED Provider: Axel Kincaid Dx/Rx/DC Orders Clinical Impression: Acute lumbosacral myofascial strain, Sacroiliac joint dysfunction of right side, Obesity (BMI 30-39.9) Instructions: Anatomy of the Sacroiliac Joint, Understanding Lumbosacral Strain Prescriptions: New oxycodone-acetaminophen [Percocet] 5-325 mg tablet 1 tab PO Q6H PRN (Reason: pain) 3 Days Qty: 12 0RF methocarbamol 500 mg tablet 1,000 mg PO 4X/DAY PRN PRN (Reason: Muscle pain/spasm) Qty: 56 0RF No Action Trulicity 1.5 mg/0.5 mL pen injector 3 mg subcut metformin 500 mg tablet 500 mg PO albuterol sulfate 2.5 MG/3 ML solution for nebulization 2.5 mg inhalation Q4H PRN PRN (Reason: Wheezing) naproxen [Naprosyn] 500 mg tablet 500 mg PO BID PRN (Reason: pain) Qty: 20 0RF cyclobenzaprine 10 mg tablet 10 mg PO BID PRN (Reason: muscle spasm) Qty: 10 0RF hydrocodone-acetaminophen 5-325 mg tablet 1 tab PO Q6H PRN (Reason: pain) 3 Days Qty: 10 0RF ibuprofen 600 MG tablet 600 mg PO Q8H PRN PRN (Reason: pain) Qty: 20 0RF oxycodone-acetaminophen [oxycodone-acetaminophen] 1 TABLET tablet 1 tab PO Q6H PRN PRN (Reason: Pain) 3 Days Qty: 12 0RF diazepam [diazepam] 5 MG tablet 5 mg PO Q8 PRN (Reason: Muscle Spasm) Qty: 15 0RF amoxicillin-pot clavulanate 875-125 mg tablet 1 tab PO BID Qty: 20 0RF Stand Alone Forms: ED Work / School Excuse Primary Care Provider: Marta Hernandez Referrals: Marta Hernandez MD [Primary Care Provider] - Activity Restrictions/Additional Instructions: Please continue to stretch and heat your low back to reduce pain and speed heali ng. Take your medication as directed to help control pain as well. If you are not having any improvement of symptoms or you have any further concerns please return to the ER for evaluation Disposition Disposition: Home, Self Care Discharge Date/Time: 04/10/22 05:29
[2022-04-10] MEDS: Orphenadrine 60 MG/2 ML Ampul IM (04:57)
[2022-04-10] MEDS: Ketorolac 30 MG/ML Syringe IM (04:57)
== END 2022-04-10 05:29 | disposition home or self-care (01) ==
PROVIDERS: Emergency Provider Emergency Medicine; PCP Internal Medicine; Visit Provider Emergency Medicine
DX: S39.012A Strain of muscle, fascia and tendon of lower back, initial encounter (principal); E66.9 Obesity, unspecified; Z86.16 Personal history of COVID-19; X58.XXXA Exposure to other specified factors, initial encounter
CPT/HCPCS: 96372; 99282

== ENCOUNTER 2022-04-19 10:13 | Emergency (ER) | payer BC, SELFPAY ==
[2022-04-19 10:15] VITALS: BP 149/55; PULSE 87; RESP 17; TEMP 36.7; O2SAT 97; BMI 47.2
--- NOTE | 2022-04-19 10:23 | VDLE_ITS ---
Reason For Study: PAIN RIGHT LEFT GSV is normal. CFV is compressible, spontaneous, phasic, CFV is compressible, spontaneous, phasic, competent, and demonstrates normal competent and demonstrates normal augmentation. augmentation. FV is compressible, spontaneous, phasic, competent and demonstrates normal augmentation. POP V is compressible, spontaneous, phasic, competent and demonstrates normal augmentation. T/P Trunk is compressible. PTV is compressible. RT PerV is compressible. Procedure This is a venous duplex using B-mode, color flow and spectral Doppler. Exam performed portable in ED. The exam was diagnostic. A preliminary report was called and/or faxed to ED. VL/Venous Duplex US, Unilateral Interpretation Summary Deep veins of the right lower extremity are patent and compressible segmentally . There is no evidence of right lower extremity deep vein thrombosis. The right great sapheno us vein appears patent and compressible segmentally. Ordering Physician: Jarad Bhat Referring Physician: Marta Hernandez Performed By: Milena Lopez, CATHIE, RVT
--- NOTE | 2022-04-19 10:23 | EX.ED.DYSGE1 ---
HPI History of Present Illness Chief Complaint: Cellulitis Informant: patient Onset/Context/Timing Onset: Yesterday Context: Gradual Onset Timing: Continuous Quality: sore, red Location: RLE Current Severity: Moderate Maximum Severity: Moderate Worsened by: palpation, walking Relieved by: remaining still Associated Symptoms Associated Symptoms: redness. no fevers. Narrative Narrative: Patient with spontaneous onset of pain, redness, may be some swelling in her right lower leg and foot. She states this is similar to episodes of DVT and cellulitis, she has had both in the past. She states that the DVT was associated with COVID, she was anticoagulated for it, but she has been off anticoagulants for months almost a year. The DVT was 1-2 years ago. She denies any recent immobilization or long travel or surgery/hospitalization but states that she injured her back recently has been off of work, but she has been getting around the house without any difficulty had not been in bed. Denies injury. Denies fevers, chills, systemic symptoms otherwise. She states she does have a history of lymphedema, but the swelling in her right lower leg is a little worse than usual. She usually wears DUNCAN hose. She has some slight erythema of the left lower leg that she states is her norm and it is not painful, the right is obviously worse. [facility] Medical History Asthma Bloodstream infection Chronic neck and back pain Diabetes type 2, uncontrolled History of colon cancer History of COVID-19 History of urinary cancer Hypertension Home Medications albuterol sulfate 2.5 mg/3 mL (0.083 %) solution for nebulization 2.5 mg inhalation Q4H PRN PRN Wheezing 01/02/20 [History Last Taken Unknown] cyclobenzaprine 10 mg tablet 10 mg PO BID PRN muscle spasm #10 tabs 12/12/20 [Rx Last Taken Unknown] hydrocodone-acetaminophen 5-325mg 5mg-325mg 1 tab PO Q6H PRN pain 3 days #10 tabs 12/12/20 [Rx Last Taken Unknown] naproxen 500 mg tablet (Naprosyn) 500 mg PO BID PRN pain #20 tabs 12/12/20 [Rx Last Taken Unknown] dulaglutide 1.5 mg/0.5 mL subcutaneous pen injector 3 mg subcut 12/16/20 [History Last Taken Unknown] metformin 500 mg tablet 500 mg PO 12/16/20 [History Last Taken Unknown] diazepam 5 mg tablet 5 mg PO Q8 PRN Muscle Spasm #15 tabs 12/17/20 [Rx Last Taken Unknown] ibuprofen 600 mg tablet 600 mg PO Q8H PRN PRN pain #20 TABLETS 12/17/20 [Rx Last Taken Unknown] oxycodone-acetaminophen 5 mg-325 mg tablet 1 tab PO Q6H PRN PRN Pain 3 days #12 TABLETS 12/17/20 [Rx Last Taken Unknown] amoxicillin 875 mg-potassium clavulanate 125 mg tablet 1 tab PO BID #20 tabs 09/23/21 [Rx Last Taken Unknown] methocarbamol 500 mg tablet 1,000 mg PO 4X/DAY PRN PRN Muscle pain/spasm #56 tabs 04/10/22 [Rx Last Taken Unknown] oxycodone-acetaminophen 5 mg-325 mg tablet (Percocet) 1 tab PO Q6H PRN pain 3 days #12 tabs 04/10/22 [Rx Last Taken Unknown] cephalexin 500 mg capsule 500 mg PO Q6 #40 CAPSULES 04/19/22 [Rx Last Taken Unknown] Allergy/AdvReac Type Severity Reaction Status Date / Time bee venom protein (honey bee) Allergy Anaphylaxis Verified 04/19/22 10:14 codeine Allergy Rash Verified 04/19/22 10:14 latex Allergy Rash Verified 04/19/22 10:14 metoclopramide HCl Allergy Rash Verified 04/19/22 10:14 [From [facility]] Family History Other Colon cancer FH: urinary cancer Social History Smoking Status: Never smoker alcohol intake: never ROS ROS ED Constitutional Constitutional ED: Denies chills or fever(s) Musculoskeletal Musculoskeletal: Reports back pain and extremity pain; Denies neck pain Integumentary Reports rash; Denies Abrasions or wounds Neurologic Neurologic: Denies paresthesias or weakness EXAM Physical Exam Const Vital Signs: 04/19/22 10:15 Temperature 98.1 F Temperature Source Temporal Pulse Rate 87 Respiratory Rate 17 Blood Pressure 149/55 H Blood Pressure Mean 86 Pulse Ox 97 Oxygen Delivery Method Room Air Positive well nourished, well developed and obese General Appearance ED: well developed and NAD Nutritional Appearance: obese Neck full ROM and supple Back/Spine normal ROM and normal to inspection Extremity Extremity Narrative: Tender erythema right lower leg and right foot, forage motion of all joints. No palpable cords. Mild objective asymmetric edema compared with the contralateral leg which she has a very mild nontender erythema anteriorly distally. Neuro oriented x3, no focal motor deficits and no sensory deficits noted Sensorium / Orientation: alert Psych mental status grossly normal and thought process normal Skin Skin Narrative: Patchy tender erythema without excessive warmth right lower leg more laterally, distal third, in addition to the dorsum of the foot. The ankle is not affected. Full range of motion of all joints of the right lower extremity without any difficulty. No abscesses. No lymphangitis. No obvious nidus for infection or signs of a foreign body. Rashes: no rashes MDM MDM MDM Narrative Medical decision making narrative: Clinically this looks more like cellulitis. Her risk factor is lymphedema. Given her history of DVTs in the past, I obtained a venous Doppler it is negative, so I think treating her as an outpatient for cellulitis is most appropriate and she is comfortable with that plan in addition to getting an empiric dose of IM Ancef here. Discharge Plan Triage Chief Complaint: Cellulitis ED Provider: Jarad Bhat Dx/Rx/DC Orders Clinical Impression: Cellulitis of leg, right Instructions: ED Cellulitis Prescriptions: New cephalexin [cephalexin] 500 mg capsule 500 mg PO Q6 Qty: 40 0RF No Action Trulicity 1.5 mg/0.5 mL pen injector 3 mg subcut metformin 500 mg tablet 500 mg PO albuterol sulfate 2.5 MG/3 ML solution for nebulization 2.5 mg inhalation Q4H PRN PRN (Reason: Wheezing) naproxen [Naprosyn] 500 mg tablet 500 mg PO BID PRN (Reason: pain) Qty: 20 0RF cyclobenzaprine 10 mg tablet 10 mg PO BID PRN (Reason: muscle spasm) Qty: 10 0RF hydrocodone-acetaminophen 5-325 mg tablet 1 tab PO Q6H PRN (Reason: pain) 3 Days Qty: 10 0RF ibuprofen 600 MG tablet 600 mg PO Q8H PRN PRN (Reason: pain) Qty: 20 0RF oxycodone-acetaminophen [oxycodone-acetaminophen] 1 TABLET tablet 1 tab PO Q6H PRN PRN (Reason: Pain) 3 Days Qty: 12 0RF diazepam [diazepam] 5 MG tablet 5 mg PO Q8 PRN (Reason: Muscle Spasm) Qty: 15 0RF amoxicillin-pot clavulanate 875-125 mg tablet 1 tab PO BID Qty: 20 0RF oxycodone-acetaminophen [Percocet] 5-325 mg tablet 1 tab PO Q6H PRN (Reason: pain) 3 Days Qty: 12 0RF methocarbamol 500 mg tablet 1,000 mg PO 4X/DAY PRN PRN (Reason: Muscle pain/spasm) Qty: 56 0RF Primary Care Provider: Marta Hernandez Referrals: Marta Hernandez MD [Primary Care Provider] - 3-5 Days Disposition Disposition: Home, Self Care
[2022-04-19] MEDS: Cefazolin 1 GM/5 ML Vial IM (12:47)
== END 2022-04-19 13:24 | disposition home or self-care (01) ==
PROVIDERS: Emergency Provider Emergency Medicine; PCP Internal Medicine; Visit Provider Emergency Medicine
DX: L03.115 Cellulitis of right lower limb (principal); E66.9 Obesity, unspecified; Z86.16 Personal history of COVID-19; Z86.718 Personal history of other venous thrombosis and embolism
CPT/HCPCS: 93971; 96372; 99282

== ENCOUNTER 2023-12-20 18:34 | Emergency (ER) | payer OTHER, SELFPAY ==
[2023-12-20 18:35] VITALS: BP 134/67; PULSE 76; RESP 18; TEMP 35.7; O2SAT 98; BMI 45.4
--- NOTE | 2023-12-20 19:19 | EDS_ITS ---
HPI History of Present Illness Chief Complaint: Lower Extremity Injury Detail of Chief Complaint: Injury to the right knee Informant: patient Narrative Narrative: Patient presents the emergency department with complaint of an injury to her right knee while at work today. 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 Patient attempted to finish her shift but continued to have increasing discomfort. Presents for evaluation. She is able to bear weight. She denies any other injuries. [facility] Medical History Asthma Bloodstream infection Chronic neck and back pain Diabetes type 2, uncontrolled History of colon cancer History of COVID-19 History of urinary cancer Hypertension Home Medications ?Medication ?Instructions ?Recorded ?Last Taken ?Type albuterol sulfate 2.5 mg/3 mL 2.5 mg inhalation Q4H PRN PRN 01/02/20 Unknown History (0.083 %) solution for nebulization Wheezing cyclobenzaprine 10 mg tablet 10 mg PO BID PRN muscle spasm #10 12/12/20 Unknown Rx tabs hydrocodone-acetaminophen 5-325mg 1 tab PO Q6H PRN pain 3 days #10 12/12/20 Unknown Rx 5mg-325mg tabs naproxen 500 mg tablet (Naprosyn) 500 mg PO BID PRN pain #20 tabs 12/12/20 Unknown Rx dulaglutide 1.5 mg/0.5 mL 3 mg subcut 12/16/20 Unknown History subcutaneous pen injector metformin 500 mg tablet 500 mg PO 12/16/20 Unknown History diazepam 5 mg tablet 5 mg PO Q8 PRN Muscle Spasm #15 12/17/20 Unknown Rx tabs ibuprofen 600 mg tablet 600 mg PO Q8H PRN PRN pain #20 12/17/20 Unknown Rx TABLETS oxycodone-acetaminophen 5 mg-325 1 tab PO Q6H PRN PRN Pain 3 days 12/17/20 Unknown Rx mg tablet #12 TABLETS amoxicillin 875 mg-potassium 1 tab PO BID #20 tabs 09/23/21 Unknown Rx clavulanate 125 mg tablet methocarbamol 500 mg tablet 1,000 mg (2 x 500 mg) PO 4X/DAY 04/10/22 Unknown Rx PRN PRN Muscle pain/spasm #56 tabs oxycodone-acetaminophen 5 mg-325 1 tab PO Q6H PRN pain 3 days #12 04/10/22 Unknown Rx mg tablet (Percocet) tabs cephalexin 500 mg capsule 500 mg PO Q6 #40 CAPSULES 04/19/22 Unknown Rx hydrocodone-acetaminophen 5-325mg 1 tab PO Q4H PRN PRN Pain 2 days 12/20/23 Unknown Rx 5mg-325mg #10 TABLETS Allergy/AdvReac Type Severity Reaction Status Date / Time bee venom protein (honey bee) Allergy Anaphylaxis Verified 12/20/23 18:34 codeine Allergy Rash Verified 12/20/23 18:34 latex Allergy Rash Verified 12/20/23 18:34 metoclopramide HCl (From Allergy Rash Verified 12/20/23 18:34 Reglan) Family History Other Colon cancer FH: urinary cancer Social History Smoking Status: Never smoker alcohol intake: never ROS ROS ED Review of Systems ROS Unobtainable: other Constitutional Constitutional ED: Reports lethargy; Denies chills, fever(s), sweats or weight loss Eyes Eyes: Denies blurry vision, change in vision or diplopia ENT ENT ED: Denies rhinorrhea or sore throat Cardiovascular Cardiovascular: Denies chest pain, orthopnea or racing heartbeat Respiratory/Chest Respiratory/Chest: Denies cough, dyspnea, dyspnea on exertion, orthopnea or sputum Gastrointestinal Gastrointestinal: Denies abdominal pain, diarrhea, nausea or vomiting Genitourinary Genitourinary ED: Denies dysuria, hematuria or urinary frequency Musculoskeletal Musculoskeletal: Reports other Details: Right knee injury/pain ; Denies arthralgias, back pain, myalgias or neck pain Integumentary Denies abscess, Abrasions or rash Neurologic Neurologic: Denies headache(s) or weakness Psychiatric Psychiatric: Denies anxiety, depression or suicidal thoughts Endocrine Endocrinology: Denies polydipsia, polyphagia or polyuria Hematologic/Lymphatic Hematologic/Lymphatic: Denies easy bleeding, easy bruising or lymphadenopathy Allergic/Immunologic Allergic/Immunologic ED: Denies mouth swelling, tongue swelling or urticaria EXAM Physical Exam Const Vital Signs: 12/20/23 18:35 Temperature 96.3 F L Temperature Source Temporal Pulse Rate 76 Respiratory Rate 18 Blood Pressure 134/67 H Blood Pressure Mean 89 Pulse Ox 98 Oxygen Delivery Method Room Air Positive well nourished and well developed General Appearance ED: well developed and NAD HEENT Reports TM's clear and moist mucous membranes normocephalic and atraumatic; Negative for trauma or tenderness Tympanic Membrane ED: Yes TM's clear Eyes PERRL and EOMs intact bilaterally General Eye ED: Negative for pale conjunctiva or scleral icterus Neck no lymphadenopathy, supple and no JVD General: Negative for tenderness Chest Wall inspection of chest normal and palpation of chest normal Chest: Negative for tenderness Resp normal respiratory effort and clear to auscultation bilaterally Effort and Inspection: Negative for respiratory distress or pain with movement Auscultation: Negative for rhonchi, wheezes or diminished lung sounds Cardio regular rate, regular rhythm, S1 normal heart sound, S2 normal heart sound and no murmurs Peripheral Pulses: pulses 2+ throughout GI normal to inspection, nondistended, normoactive bowel sounds, soft to palpation, non-tender, non-distended and no masses Back/Spine no CVA tenderness and no thoracic nor lumbar tenderness Extremity Extremity Narrative: Right knee-no obvious effusion. There is no ecchymosis or bruising. She has some tenderness palpation over the medial joint line. Normal anterior and posterior drawer test. Patient has minimal laxity with stress on the medial collateral ligament and has discomfort to the medial portion of the knee with stress. Negative Dann's test. General Extremety ED: Negative for edema General Extremity: Negative for edema Neuro oriented x3, CN's II-XII intact bilaterally, no sensory deficits noted and gait normal Sensorium / Orientation: awake, alert, oriented to person, oriented to place and oriented to time Motor Exam: strength 5/5 throughout and strength abnormal Psych mental status grossly normal Skin no rashes or lesions noted and no wounds MDM MDM MDM Narrative Medical decision making narrative: Patient presents with injury to the right knee that occurred while at work. Concern for ligamentous injury. X-rays obtained the left knee were negative for fracture or dislocation. Patient placed on work restrictions. She will be given a knee immobilizer. She given crutches and a prescription for few [place] for pain. She will be referred to orthopedics for follow-up. Radiography Diagnostic Testing: Clinical Impression(s) from Imaging Studies Knee X-Ray 12/20/23 19:24 IMPRESSION: Negative. Electronically Signed: Gil Perry at 19:34 EDT Reading Location ID and State: [facility] / [place] Tel [phone], Service support , 4 view x-rays of the right knee obtained interpreted by myself as no evidence of fracture or dislocation. Radiology in agreement. Discharge Plan Triage Chief Complaint: Lower Extremity Injury ED Provider: Andres De Guzman Dx/Rx/DC Orders Clinical Impression: Left knee sprain Instructions: ED Knee Sprain Prescriptions: New hydrocodone-acetaminophen 5-325 mg tablet 1 tab PO Q4H PRN PRN (Reason: Pain) 2 Days Qty: 10 0RF No Action Trulicity 1.5 mg/0.5 mL pen injector 3 mg subcut metformin 500 mg tablet 500 mg PO albuterol sulfate 2.5 MG/3 ML solution for nebulization 2.5 mg inhalation Q4H PRN PRN (Reason: Wheezing) naproxen [Naprosyn] 500 mg tablet 500 mg PO BID PRN (Reason: pain) Qty: 20 0RF cyclobenzaprine 10 mg tablet 10 mg PO BID PRN (Reason: muscle spasm) Qty: 10 0RF hydrocodone-acetaminophen 5-325 mg tablet 1 tab PO Q6H PRN (Reason: pain) 3 Days Qty: 10 0RF ibuprofen 600 MG tablet 600 mg PO Q8H PRN PRN (Reason: pain) Qty: 20 0RF oxycodone-acetaminophen [oxycodone-acetaminophen] 1 TABLET tablet 1 tab PO Q6H PRN PRN (Reason: Pain) 3 Days Qty: 12 0RF diazepam [diazepam] 5 MG tablet 5 mg PO Q8 PRN (Reason: Muscle Spasm) Qty: 15 0RF amoxicillin-pot clavulanate 875-125 mg tablet 1 tab PO BID Qty: 20 0RF oxycodone-acetaminophen [Percocet] 5-325 mg tablet 1 tab PO Q6H PRN (Reason: pain) 3 Days Qty: 12 0RF methocarbamol 500 mg tablet 1,000 mg PO 4X/DAY PRN PRN (Reason: Muscle pain/spasm) Qty: 56 0RF cephalexin [cephalexin] 500 mg capsule 500 mg PO Q6 Qty: 40 0RF Primary Care Provider: Marta Hernandez Referrals: Marta Hernandez MD [Primary Care Provider] - Jj Kyle DO [Med Staff - Active Staff] - 3-5 Days Print Language: Slovak Disposition Disposition: Home, Self Care
--- NOTE | 2023-12-20 19:24 | RAD_ITS ---
INDICATION: injury EXAMINATION/TECHNIQUE: X-RAY - RIGHT XR Knee Complete 4 Views COMPARISON: FINDINGS: SOFT TISSUES: No soft tissue swelling or gas. No radiopaque foreign body. BONES/JOINTS: No acute fracture or subluxation.. Normal alignment. Preservation of the joint space.. No sclerotic or destructive changes observed. RAD/Knee 4 or More Views IMPRESSION: Negative. Electronically Signed: Gil Amador DO at 19:34 EDT ,
[2023-12-20 20:30] VITALS: BP 134/67; PULSE 70; RESP 18; TEMP 36.1; O2SAT 98
== END 2023-12-20 20:31 | disposition home or self-care (01) ==
PROVIDERS: Emergency Provider Emergency Medicine; PCP Internal Medicine; Visit Provider Emergency Medicine
DX: S83.92XA Sprain of unspecified site of left knee, initial encounter (principal); E11.9 Type 2 diabetes mellitus without complications; J45.909 Unspecified asthma, uncomplicated; X58.XXXA Exposure to other specified factors, initial encounter
CPT/HCPCS: 73564; 99284